=== PATIENT | male | born 1960 | race Caucasian/White ===

== ENCOUNTER 2016-09-13 07:02 | Day surgery (SDC) | payer OTHER ==
[~2016-09-13] VITALS: Ht 175.3 cm; Wt 136.8 kg
[~2016-09-13 07:02] MED LIST: LANT3I SC; LOSA100T7 PO; METF1000 PO; NOVO3I SC; SITA100T8 PO; ibuprofen PO
[2016-09-13 08:01] VITALS: Ht 175.3 cm; Wt 136.8 kg
[2016-09-13 08:30] VITALS: BP 183/90; PULSE 73; RESP 20
[2016-09-13] MEDS ORDERED: MIDAZOLAM 1 MG/ML 2 ML INJ ONE (09:03)
[2016-09-13] MEDS ORDERED: PROPOFOL 20 ML ONE (09:03)
[2016-09-13] MEDS ORDERED: ESMOLOL 10 ML ONE (09:14)
[2016-09-13] MEDS ORDERED: hydrALAzine 20 MG INJ ONE (09:39)
[2016-09-13 10:25] VITALS: BP 176/84; PULSE 70; RESP 18
--- NOTE | 2016-09-14 05:39 | GILP ---
DATE OF PROCEDURE: NAME OF THE PROCEDURE: Colonoscopy and polypectomy. SURGEON: Steven Foley MD. PREOPERATIVE DIAGNOSIS: Right colon cancer. POSTOPERATIVE DIAGNOSES 1. Colonoscopy all the way to the cecum. 2. No residual tumor or any scar tissue at the previous polypectomy site was identified in the righ t colon. 3. Small sigmoid colon polyp was removed using the snare and the electrocautery. 4. Internal hemorrhoids. INDICATION FOR THE PROCEDURE: Mr. Terernce Perez is a 56-year-old male patient who had scr eening colonoscopy 2 months ago. The patient was noted to have a flat polyp in the right colon, and it was removed, and to the surprise, it turned out to be adenocarcinoma. The patient was seen by t surgeon, and the surgeon wanted the site of polypectomy to be tattooed, so the patient was schedu led for a repeat colonoscopy and possible tattooing. The procedure and possible complications were well explained to the patient. He understood and cons ented to the procedure. DESCRIPTION OF PROCEDURE: Under the influence of anesthesia, the colonoscope was carefully introduc ed in the rectum, and under direct vision, it was advanced all the way to the cecum. FINDINGS: The right colon was completely clean. No residual tumor or any scar tissue at the previo us polypectomy site was identified. There was complete healing. The patient was noted to have a sm all sigmoid colon polyp, and it was removed using the snare and the electrocautery. He also had int ernal hemorrhoids. He tolerated the procedure very well, and there was no complication from the procedure. At the end of the procedure, he was awake with stable vital signs, and he was discharged home to the care of hi s family. IMPRESSION 1. Colonoscopy all the way to the cecum. 2. The right colon was cleaned, and there was no residual tumor, and even the scar tissue at the pr evious polypectomy site could not be identified. 3. The patient had a small sigmoid colon polyp, and it was removed using the snare and electrocaute ry. 4. Internal hemorrhoids. PLAN: Surgical evaluation again to decide between right hemicolectomy or possible followup of the patient with a repeat PET scan in 3 to 6 months. The case was discussed with Dr. Tinoco, who is the colorectal surgeon for this patient, and he said he is going to sit with the patient again, and then final decision will be made. Dictated By: STEVEN BRIZUELA/JACOB Conf#: [id number] DID#: [id number] CC: ANNABELLE TINOCO MD;*[facility]*
== END 2016-09-13 11:58 | disposition home or self-care (01) ==
LOC: GIL 07:02
PROVIDERS: ATTEND Internal Medicine Gastroenterology
DX: C18.2 Malignant neoplasm of ascending colon (principal); K64.8 Other hemorrhoids; D12.5 Benign neoplasm of sigmoid colon; E11.9 Type 2 diabetes mellitus without complications; I10 Essential (primary) hypertension; E66.9 Obesity, unspecified; Z68.41 Body mass index [BMI] 40.0-44.9, adult
CPT/HCPCS: 45384; 82962; 88305; J0360; J2250

== ENCOUNTER 2016-11-05 08:33 | Day surgery (SDC) | payer OTHER ==
[2016-09-13 12:52] VITALS: BMI 48.3
[2016-11-04 16:46] VITALS: BMI 42.9
[2016-11-05] VITALS (14 sets, daily range): BP systolic 100–156; BP diastolic 59–85; PULSE 68–100; RESP 16–27; Ht 175.3 cm; Wt 131.1 kg
[~2016-11-05] VITALS: Ht 175.3 cm; Wt 131.1 kg
[~2016-11-05 08:33] MED LIST changes: +ACETAMINOPHEN 1000 MG/100 ML IVPB ONE; +CEFAZOLIN 2 GM/50 ML (PMX) 50 ML IVPB SCH; +SOD CHLORIDE 0.9% 1,000 ML IV SCH; -ibuprofen PO
[2016-11-05] MEDS ORDERED: ATOR40TA68 PO (09:28)
[2016-11-05] MEDS ORDERED: INSULIN REGULAR, HUMAN 100 UNIT/1 ML 3ML VIAL IV ONE (09:30)
[2016-11-05] MEDS ORDERED: PROPOFOL 20 ML ONE (10:02)
[2016-11-05] MEDS ORDERED: LIDOCAINE 2% (SDV) 5 ML INJ ONE (10:02)
[2016-11-05] MEDS ORDERED: ROCURONIUM 50 MG INJ ONE (10:03)
[2016-11-05] MEDS ORDERED: SUCCINYLCHOLINE CHLORIDE 100 MG/5 ML SYG IV ONE (10:03)
[2016-11-05] MEDS ORDERED: BUPIVACAINE 0.25% (MPF) 30 ML INJ ONE (10:07)
[2016-11-05] MEDS ORDERED: DEXAMETHASONE 4 MG/ML 1 ML INJ ONE (10:12)
[2016-11-05] MEDS ORDERED: PHENYLephrine (100 MCG/ML) 5ML SYG ONE (10:34)
[2016-11-05] MEDS ORDERED: THROMBIN(HUM PLAS)/FIBRINOG/CA 5 ML VIAL TOP ONE (10:55)
[2016-11-05] MEDS ORDERED: CEFAZOLIN 1 GM INJ ONE (10:59)
[2016-11-05] MEDS ORDERED: GLYCOPYRROLATE 0.4 MG INJ ONE (10:59)
[2016-11-05] MEDS ORDERED: EPHEDrine SULFATE 50 MG/5 ML SYG ONE (10:59)
[2016-11-05] MEDS ORDERED: NEOSTIGMINE 3 MG/3 ML SYRINGE ONE (10:59)
[2016-11-05] MEDS ORDERED: FENTAnyl 50 MCG/ML VIAL IV PRN ×2 (11:00)
[2016-11-05] MEDS ORDERED: EPHEDrine SULFATE 50 MG/5 ML SYG IV PRN (11:00)
[2016-11-05] MEDS ORDERED: MEPERIDINE 25 MG INJ IV PRN (11:00)
[2016-11-05] MEDS ORDERED: ONDANSETRON 4 MG INJ IV PRN (11:00)
[2016-11-05] MEDS ORDERED: HYDROmorphONE (0.2 MG/ML) 10ML SYG IV PRN ×2 (11:00)
[2016-11-05] MEDS ORDERED: INSULIN ASPART [NOVOLOG] 3 ML PEN SC ONE (11:00)
[2016-11-05] MEDS ORDERED: LABETALOL HCL 20MG INJ IV PRN (11:00)
[2016-11-05] MEDS ORDERED: METOCLOPRAMIDE 10 MG INJ IV PRN (11:00)
[2016-11-05] MEDS ORDERED: hydrALAzine 20 MG INJ IV PRN (11:00)
[2016-11-05] MEDS ORDERED: LABETALOL HCL 20MG INJ ONE (11:00)
[2016-11-05] MEDS: FENTAnyl 50 MCG/ML VIAL IV PRN ×2 (11:25→11:34)
[2016-11-05] MEDS ORDERED: HYDROCODONE/APAP (5/325) TAB PO ONE (11:30)
--- NOTE | 2016-11-05 11:32 | OPR ---
DATE OF OPERATION: 11/05/2016 INDICATION: This is a 56-year-old male with symptomatic gallstones. He requests surgical excision of his gallbladder. Risks, alternatives, benefits, and personnel were discussed with the patient. The patient expressed his understanding and consents to the operation. PREOPERATIVE DIAGNOSIS: Symptomatic gallstones. POSTOPERATIVE DIAGNOSIS: Symptomatic gallstones. OPERATION: Laparoscopic cholecystectomy. SURGEON: Do García MD FIRE EXTINGUISHER TECHNICIAN: Talat Manrique MD SPECIMENS: Gallbladder. COMPLICATIONS: None. ANESTHESIA: General. DESCRIPTION OF PROCEDURE: The patient was taken to the OR and prepped and draped in the usual steri le fashion. A surgical timeout was performed. IV antibiotics were given. Supraumbilical incision was made with a 15 blade. Dissection cautery was carried down to the fascia, 0 Vicryl stay sutures were placed on either side of the midline. The midline is opened. Balloon Enzo trocar was introd uced. Pneumoperitoneum was established. Midepigastric 12 mm optical trocar and right upper quadran t and right upper flank 5 mm optical trocars are placed under direct visualization. Upon initial in spection, there were some adhesions to the gallbladder. The cystic duct and cystic artery are ident ified. The critical view was established. The cystic duct and cystic artery were divided using a 3 5 mm Abiquiu vascular load stapler x2 gallbladder was taken off the gallbladder bed. There was good hemostasis. Gallbladder was retrieved using EndoCatch bag. Additional clips were placed for reinf orcement. Ports were removed under direct visualization, 0 Vicryl stay sutures were tied down. Add itionally, a [id number] 0 Vicryl was placed for additional closure. Skin was closed using skin oren. Local anesthesia was injected and dry dressings were applied. Dictated By: DO ARMANDO/JACOB Conf#: [id number] DID#: [id number]
[2016-11-05] MEDS: HYDROmorphONE (0.2 MG/ML) 10ML SYG IV PRN ×2 (11:34→11:50)
[2016-11-05] MEDS ORDERED: INSULIN REGULAR, HUMAN 100 UNIT/1 ML 3ML VIAL SC ONE (12:00)
== END 2016-11-05 13:45 | disposition home or self-care (01) ==
LOC: SDS 08:33
PROVIDERS: ATTEND Surgery
DX: K80.10 Calculus of gallbladder with chronic cholecystitis without obstruction (principal); I12.0 Hypertensive chronic kidney disease with stage 5 chronic kidney disease or end stage renal disease; I10 Essential (primary) hypertension; E11.9 Type 2 diabetes mellitus without complications; J45.909 Unspecified asthma, uncomplicated; E66.01 Morbid (severe) obesity due to excess calories; Z68.41 Body mass index [BMI] 40.0-44.9, adult
CPT/HCPCS: 47562; 82962; 88304; J0131; J0690; J1100; J1170; J1815; J2405; J3010; C9250; J0330; J2370; J2710

== ENCOUNTER 2016-11-11 19:10 | Inpatient (IN) | payer OTHER ==
[~2016-11-11] VITALS: Ht 175.3 cm; Wt 129.5 kg
[~2016-11-11 19:10] MED LIST changes: -ACETAMINOPHEN 1000 MG/100 ML IVPB ONE; +ATOR40TA68 PO; -CEFAZOLIN 2 GM/50 ML (PMX) 50 ML IVPB SCH; -SOD CHLORIDE 0.9% 1,000 ML IV SCH
--- NOTE | 2016-11-11 21:26 | ERA ---
ER Documentation Chief Complaint Date/Time DATE: 11/11/16 TIME: 21:25 Chief Complaint AP today, S/P Cholecystitis HPI The patient is a 56-year-old male, who had laparoscopic cholecystectomy on November 05, 2016, presenting to the ER because of right upper quadrant abdominal pain after bending down today. He has been constipated. He had a big fatty meal before the abdominal pain. The abdominal pain is 9/10. He denies fever, chills, neck pain, chest pain, vomiting, dysuria, diarrhea. He does not smoke, drinks socially Past medical history: Hypertension, diabetes mellitus, dyslipidemia Past surgical history: Umbilical herniorrhaphy ROS All systems reviewed and are negative except as per history of present illness. Medications Home Meds Active Scripts Insulin Aspart* (Novolog Insulin Pen*) 100 Unit/Ml Soln, 8 UNIT SC WITH MEALS for 30 Days, 1 Refill Prov:BABAR MORGAN. 02/25/15 Insulin Glargine* (Lantus*) 100 Unit/Ml Soln, 36 UNIT SC QAM for 30 Days, 1 Refill Prov:BAABR MORGAN. 02/25/15 Reported Medications Ibuprofen* (Ibuprofen*) 200 Mg Capsule, 400 MG PO Q6 Y for PRN, CAP 11/11/16 Metformin Hcl* (Metformin Hcl*) 500 Mg Tablet, 500 MG PO WITH BREAKFAST, #30 TAB 11/11/16 Losartan-Hydrochlorothiazide (Losartan-HCTZ) 100-25 Mg Tab, 1 TAB PO DAILY, TAB 11/11/16 Atorvastatin* (Atorvastatin*) 40 Mg Tablet, 40 MG PO QHS, #30 TAB 11/05/16 Sitagliptin* (Januvia*) 100 Mg Tablet, 100 MG PO DAILY, TAB 02/22/15 Discontinued Reported Medications Losartan Potassium* (Losartan Potassium*) 100 Mg Tablet, 100 MG PO DAILY, TAB 02/22/15 Metformin Hcl* (Metformin Hcl*) 1,000 Mg Tablet, 1000 MG PO BID WITH MEALS, TAB 02/22/15 Allergies Allergies: Coded Allergies: adhesive tape (Verified Adverse Reaction, Unknown, SKIN COMES OFF, 11/11/16 ) PMhx/Soc History of Surgery: Yes (umbilical hernia) Anesthesia Reaction: No Hx Neurological Disorder: No Hx Respiratory Disorders: No Hx Cardiac Disorders: Yes (HTN,HLP) Hx Psychiatric Problems: No Hx Miscellaneous Medical Probl: No Hx Alcohol Use: No (FORMER) Hx Substance Use: No Hx Tobacco Use: No Physical Exam Vitals Vital Signs Date Time Temp Pulse Resp B/P Pulse Ox O2 Delivery O2 Flow Rate FiO2 11/11/16 23:22 99.2 87 18 145/74 97 11/11/16 19:28 97.6 79 18 149/88 94 Physical Exam Const: No acute distress. Head: Atraumatic. Eyes: Normal Conjunctiva. ENT: Normal External Ears, Nose and Mouth. Neck: Full range of motion. No meningismus. Resp: Clear to auscultation bilaterally. Cardio: Regular rate and rhythm, no murmurs. Abd: Soft, obese, normal bowel sounds, moderate right upper quadrant tenderness, no rigidity, rebound, CVA tenderness. Skin: No petechiae or rashes. Back: No midline or flank tenderness. Ext: No cyanosis, or edema. Neur: Awake and alert. No focal deficit Psych: Normal Mood and Affect. Result Diagram: 11/11/16212211/11/162122 Results 24 hrs Laboratory Tests Test 11/11/16 21:23 11/11/16 22:32 11/11/16 22:40 11/12/16 00:38 White Blood Count 18.310^3/ul Red Blood Count 4.2710^6/ul Hemoglobin 12.8g/dl Hematocrit 37.5% Mean Corpuscular Volume 87.8fl Mean Corpuscular Hemoglobin 30.0pg Mean Corpuscular Hemoglobin Concent 34.1g/dl Red Cell Distribution Width 12.1% Platelet Count 36414^3/UL Mean Platelet Volume 11.0fl Neutrophils % 87.5% Lymphocytes % 7.2% Monocytes % 4.2% Eosinophils % 0.2% Basophils % 0.2% Nucleated Red Blood Cells % 0.0/100WBC Neutrophils # 16.010^3/ul Lymphocytes # 1.310^3/ul Monocytes # 0.810^3/ul Eosinophils # 0.010^3/ul Basophils # 0.010^3/ul Nucleated Red Blood Cells # 0.010^3/ul Sodium Level 130mmol/L Potassium Level 4.2mmol/L Chloride Level 86mmol/L Carbon Dioxide Level 31mmol/L Anion Gap 17 Blood Urea Nitrogen 26mg/dl Creatinine 1.00mg/dl Glucose Level 614mg/dl Calcium Level 9.8mg/dl Total Bilirubin 0.5mg/dl Direct Bilirubin 0.00mg/dl Indirect Bilirubin 0.5mg/dl Aspartate Amino Transf (AST/SGOT) 25IU/L Alanine Aminotransferase (ALT/SGPT) 41IU/L Alkaline Phosphatase 145IU/L Total Protein 8.7g/dl Albumin 3.9g/dl Globulin 4.80g/dl Albumin/Globulin Ratio 0.81 Lipase 173U/L Bedside Urine pH (LAB) 5.5 Bedside Urine Protein (LAB) Negative Bedside Urine Glucose (UA) 0.50% Bedside Urine Ketones (LAB) Negative Bedside Urine Blood Negative Bedside Urine Nitrite (LAB) Negative Bedside Urine Leukocyte Esterase (L Negative Bedside Glucose 568mg/dL 480mg/dL Test 11/12/16 01:17 Bedside Glucose 466mg/dL Current Medications Medications (Trade) Dose Ordered Sig/Isidoro Route PRN Reason Start Time Stop Time Status Last Admin Dose Admin Morphine Sulfate (morphine) 4 mg ONCE STAT IV 11/11/16 21:31 11/11/16 21:33 DC 11/11/16 21:56 Ondansetron HCl (Zofran Inj) 4 mg ONCE STAT IV 11/11/16 21:31 11/11/16 21:33 DC 11/11/16 21:56 Sodium Biphosphate/ Sodium Phosphate (Fleet Enema) 133 ml ONCE ONCE ID 11/11/16 22:00 11/11/16 22:01 DC 11/11/16 21:56 Sodium Chloride (NS) 2,000 ml ONCE ONCE IV* 11/11/16 22:30 11/11/16 22:31 DC 11/11/16 22:39 Insulin Human Lispro (Humalog) 20 unit ONCE STAT SC 11/11/16 22:11 11/11/16 22:15 DC 11/11/16 22:41 Miscellaneous Information 1 ea NOTE XX 11/11/16 22:30 Glucose (Glutose) 15 gm Q15M PRN PO DECREASED GLUCOSE 11/11/16 22:30 Glucose (Glutose) 22.5 gm Q15M PRN PO DECREASED GLUCOSE 11/11/16 22:30 Dextrose (D50w Syringe) 25 ml Q15M PRN IV DECREASED GLUCOSE 11/11/16 22:30 Dextrose (D50w Syringe) 50 ml Q15M PRN IV DECREASED GLUCOSE 11/11/16 22:30 Glucagon (Glucagen) 1 mg Q15M PRN IM DECREASED GLUCOSE 11/11/16 22:30 Glucose 15 gm 15 gm Q15M PRN BUCCAL DECREASED GLUCOSE 11/11/16 22:30 Sodium Chloride (NS) 100 ml @ ud STK-MED ONCE .ROUTE 11/11/16 23:32 11/11/16 23:33 DC 11/12/16 00:27 Iohexol 150 ml 150 ml STK-MED ONCE .ROUTE 11/11/16 23:32 11/11/16 23:33 DC 11/12/16 00:27 Piperacillin Sod/ Tazobactam Sod (Zosyn 3.375gm/ 100 ml (Pmx)) 100 ml @ 200 mls/hr ONCE ONCE IVPB 11/12/16 01:30 11/12/16 01:59 DC 11/12/16 01:30 Procedures/MDM [place] [id number] Radiology Main Line: [phone] DIAGNOSTIC IMAGING REPORT Patient: MAUREEN LAGUNA : 1960 Age: 56 Sex: M MR #: [id number] DOS: 11/11/16 0000 Ordering MD: SHANNON HARRISON MD Location: E/R Room/Bed: PROCEDURE: XR Chest. CLINICAL INDICATION: Shortness of breath. TECHNIQUE: Single frontal view. COMPARISON: 01/03/2013. FINDINGS: The lungs are clear. The heart is enlarged. There is no pleural effusion. There is no pneumothorax. IMPRESSION: 1. Cardiomegaly. 2. Clear lungs. RPTAT: QQ .Larry Nava MD, MD Date Time Electronically viewed and signed by .Larry Nava MD, MD on 11/11/2016 22:58 .R/ CC: SHANNON HARRISON MD [address], [place] [address] Radiology Main Line: [phone] DIAGNOSTIC IMAGING REPORT Patient: MAUREEN LAGUNA : 1960 Age: 56 Sex: M MR #: [id number] [facility] #: [id number] DOS: 11/11/16 2213 Ordering MD: SHANNON HARRISON MD Location: E/R Room/Bed: PROCEDURE: CT ABDOMEN/PELVIS WITH CONTRAST CLINICAL INDICATION: 56-year-old male with abdominal pain. TECHNIQUE: The study was performed utilizing a [employer] VCT 64-slice CT scanner. Direct axial sections were obtained through the abdomen and pelvis with the use of 100 cc of Omnipaque-300 nonionic intravenous contrast material. Sagittal and coronal reformations were obtained. One or more of the following dose reduction techniques were utilized: automated exposure control, adjustment of the mA and/or kV according to patient's size or use of iterative reconstruction technique. The images were reviewed on a PACS workstation. CTD/ vol = 23.1 mGy; Total Exam DLP = 1678 point a mGy-cm. COMPARISON: None. FINDINGS: There is mild bibasilar subsegmental atelectasis. There is no evidence for significant pleural effusion. There is mild free fluid surrounding the right lobe of the liver extending into the right pericolic gutter as well as trace fluid within the peritoneum. The liver has a normal size and contour without focal areas of abnormal density or contrast enhancement. No intrahepatic nor extrahepatic biliary ductal dilatation is seen. Skin clips are seen within the upper midline of the abdomen, right upper quadrant and supraumbilical region from trocar placement from laparoscopic surgery. Surgical clips are seen within the gallbladder fossa from cholecystectomy. There is a fluid collection within the gallbladder fossa region measuring approximately 2.7 x 4.0 x 4.2 cm which may represent a postoperative seroma versus biloma. There appears to be multiple residual gallstones within a possible gallbladder remnant versus dilated cystic duct. There is mild surrounding inflammatory changes. The pancreas is without areas of abnormal attenuation or contrast enhancement. This spleen is identified and has a normal size without abnormal density or contrast enhancement. The adrenal glands are unremarkable. The kidneys are functional bilaterally without abnormal density. No hydroureteronephrosis nor nephroureterolithiasis is evident. The urinary bladder contains urine. There is mild retained stool throughout the colon without gross bowel obstruction. The appendix is visualized and is without edema or surrounding inflammatory reaction. The aortoiliac vessels are mildly calcified but without aneurysmal dilatation. Mild degenerative changes are seen within the spine. IMPRESSION: 1. Evidence for recent laparoscopic surgery with postoperative changes. 2. Mild free fluid surrounding the right lobe of the liver extending into the pericolic gutter and trace fluid in the peritoneum. 3. Status post cholecystectomy with mild fluid collection within the gallbladder fossa region which may represent a postoperative seroma versus biloma. There are multiple residual gallstones which may be within a gallbladder or cystic duct remnant. 4. Retained stool. CALL REPORT: A call report was made to [facility] ER Dr. Harrison on November 12, 2016 at 01:10 a.m. .Jelani Benton MD, Date Time Electronically viewed and signed by .Jelani Benton MD, MD on 11/12/2016 01:17 .M/ CC: SHANNON HARRISON MD MEDICAL MAKING DECISION: The patient is a 56-year-old male, presenting to the ER because of acute postoperative abdominal pain, acute diabetic hyperglycemia, acute constipation. He was treated with morphine 4 mg IV for pain, Zofran 4 mg IV for nausea, Fleet enema for acute constipation, 3 L normal saline and 20 units Humalog subcutaneously for acute diabetic hyperglycemia and Zosyn IV empirically. The differential diagnoses considered include but are not limited to residual gallstones within a gallbladder or cystic duct remnant, cystitis, pancreatitis , hepatitis, gastritis, peptic ulcer disease, gastric ulcer, appendicitis, diverticulitis, cholangitis, choledocholithiasis, partial small bowel obstruction, HHS, DKA. Consultation: I discussed the patient with his general surgeon Dr Do García who requested the patient admitted to Dr. Galindo Departure Diagnosis: Primary Impression: Abdominal pain Additional Impressions: Diabetes mellitus with hyperglycemia Anemia Condition: Stable Comments [facility] authorized the admission; however they specifically requested the admitting doctor must not be Dr. Galindo I discussed the findings with the patient. I discussed the patient with the on- call hospitalist Dr. Snow who was made aware of the lab, the treatment, the patient condition. The patient is admitted to medical surgery bed at 2:15 AM SHANNON HARRISON MD Nov 11, 2016 21:26
[2016-11-11] MEDS ORDERED: morphine 4 MG/ML VIAL IV STA (21:31)
[2016-11-11] MEDS ORDERED: ONDANSETRON 4 MG INJ IV STA (21:31)
[2016-11-11 21:42] LABS: ADD SCAN DIFF NO
[2016-11-11 21:46] LABS: BASOPHILS % 0.2 % (0.0-2.0); EOSINOPHILS % 0.2 % (0.0-7.0); HEMATOCRIT 37.5 % (42.0-52.0); HEMOGLOBIN 12.8 g/dl (14.0-18.0); LYMPHOCYTES # 1.3 10^3/ul (0.8-2.9); LYMPHOCYTES % 7.2 % (15.0-51.0); MEAN CORPUSCULAR HGB CONC 34.1 g/dl (32.0-37.0); MEAN CORPUSCULAR VOLUME 87.8 fl (82.0-101.0); MONOCYTE # 0.8 10^3/ul (0.3-0.9); MONOCYTES % 4.2 % (0.0-11.0); NEUTROPHILS % 87.5 % (39.0-77.0); PLATELET COUNT 432 10^3/UL (140-415); RED BLOOD COUNT 4.27 10^6/ul (4.70-6.10); RED CELL DISTRIBUTION WIDTH 12.1 % (11.5-14.5); WHITE BLOOD COUNT 18.3 10^3/ul (4.8-10.8)
[2016-11-11 21:58] LABS: ALBUMIN 3.9 g/dl (3.3-4.9)
[2016-11-11 21:59] LABS: POTASSIUM 4.2 mmol/L (3.5-5.1)
[2016-11-11] MEDS ORDERED: NA PHOSPHATE/BIPHOS 133 ML ENEMA PR ONE (22:00)
[2016-11-11 22:01] LABS: ALBUMIN/GLOBULIN RATIO 0.81; BILIRUBIN,INDIRECT 0.5 mg/dl (0-1.1); BILIRUBIN,TOTAL 0.5 mg/dl (0.2-1.3); TOTAL PROTEIN 8.7 g/dl (6.1-8.1)
[2016-11-11 22:02] LABS: CALCIUM 9.8 mg/dl (8.4-10.2)
[2016-11-11] MEDS ORDERED: INSULIN LISPRO 100 UNIT/ML VIAL SC STA (22:11)
[2016-11-11] MEDS ORDERED: LOSA1TAB20 PO (22:22)
[2016-11-11] MEDS ORDERED: IBUP200C PO (22:23)
[2016-11-11] MEDS ORDERED: METF-382 PO (22:23)
[2016-11-11] MEDS ORDERED: GLUCAGON 1 MG INJ IM PRN (22:30)
[2016-11-11] MEDS ORDERED: GLUCOSE GEL 15 GRAM TUBE BUCCAL PRN (22:30)
[2016-11-11] MEDS ORDERED: SODIUM CHLORIDE 0.9% 1L BAG IV* ONE (22:30)
[2016-11-11] MEDS ORDERED: DEXTROSE 50% 50 ML SYRINGE IV PRN ×2 (22:30)
[2016-11-11] MEDS ORDERED: GLUCOSE GEL 15 GRAM TUBE PO PRN ×2 (22:30)
[2016-11-11 22:33] LABS: URINE BLOOD (Dip) POC Negative (NEGATIVE)
--- NOTE | 2016-11-11 22:58 | RADRPT ---
PROCEDURE: XR Chest. CLINICAL INDICATION: Shortness of breath. TECHNIQUE: Single frontal view. COMPARISON: 01/03/2013. FINDINGS: The lungs are clear. The heart is enlarged. There is no pleural effusion. There is no pneumothorax. IMPRESSION: 1. Cardiomegaly. 2. Clear lungs. RPTAT: QQ .Larry Nava MD, MD Date Time Electronically viewed and signed by .Larry Nava MD, MD on 11/11/2016 22:58 .R/
[2016-11-11] MEDS ORDERED: IOHEXOL 300MG/ML 150 ML BTL ONE (23:32)
[2016-11-11] MEDS ORDERED: SOD CHLORIDE 0.9% 100 ML ONE (23:32)
--- NOTE | 2016-11-12 01:18 | RADRPT ---
PROCEDURE: CT ABDOMEN/PELVIS WITH CONTRAST CLINICAL INDICATION: 56-year-old male with abdominal pain. TECHNIQUE: The study was performed utilizing a [employer] VCT 64-slice CT scanner. Direct axia l sections were obtained through the abdomen and pelvis with the use of 100 cc of Omnipaque-300 dedra onic intravenous contrast material. Sagittal and coronal reformations were obtained. One or more of the following dose reduction techniques were utilized: automated exposure control, adjustment of the mA and/or kV according to patient's size or use of iterative reconstruction technique. The images were reviewed on a PACS workstation. CTD/vol = 23.1 mGy; Total Exam DLP = 1678 point a mGy-cm. COMPARISON: None. FINDINGS: There is mild bibasilar subsegmental atelectasis. There is no evidence for significant pleural effu enrique. There is mild free fluid surrounding the right lobe of the liver extending into the right per icolic gutter as well as trace fluid within the peritoneum. The liver has a normal size and contour without focal areas of abnormal density or contrast enhancement. No intrahepatic nor extrahepatic b iliary ductal dilatation is seen. Skin clips are seen within the upper midline of the abdomen, right upper quadrant and supraumbilical region from trocar placement from laparoscopic surgery. Surgical clips are seen within the gallbladder fossa from cholecystectomy. There is a fluid collection withi n the gallbladder fossa region measuring approximately 2.7 x 4.0 x 4.2 cm which may represent a post operative seroma versus biloma. There appears to be multiple residual gallstones within a possible gallbladder remnant versus dilated cystic duct. There is mild surrounding inflammatory changes. The pancreas is without areas of abnormal attenuation or contrast enhancement. This spleen is ident ified and has a normal size without abnormal density or contrast enhancement. The adrenal glands are unremarkable. The kidneys are functional bilaterally without abnormal density. No hydroureteronephr osis nor nephroureterolithiasis is evident. The urinary bladder contains urine. There is mild retain ed stool throughout the colon without gross bowel obstruction. The appendix is visualized and is wi thout edema or surrounding inflammatory reaction. The aortoiliac vessels are mildly calcified but w ithout aneurysmal dilatation. Mild degenerative changes are seen within the spine. IMPRESSION: 1. Evidence for recent laparoscopic surgery with postoperative changes. 2. Mild free fluid surrounding the right lobe of the liver extending into the pericolic gutter and trace fluid in the peritoneum. 3. Status post cholecystectomy with mild fluid collection within the gallbladder fossa region which may represent a postoperative seroma versus biloma. There are multiple residual gallstones which ma y be within a gallbladder or cystic duct remnant. 4. Retained stool. CALL REPORT: A call report was made to [facility] ER Dr. Lutz on November 12, 2016 at 01:10 a.m. .Jelani Benton MD, MD Date Time Electronically viewed and signed by .Jelani Benton MD, MD on 11/12/2016 01:17 .M/
[2016-11-12] MEDS ORDERED: PIPER-TAZO 3.375 GM IV (PMX) 100 ML IVPB ONE (01:30)
[2016-11-12] MEDS ORDERED: SOD CHLORIDE 0.9% 1,000 ML IV ONE (02:30)
[2016-11-12 04:00] VITALS: TEMP 98.3
[2016-11-12] MEDS ORDERED: morphine 4 MG/ML VIAL IV STA (04:34)
[2016-11-12] MEDS ORDERED: ONDANSETRON 4 MG INJ IV STA (04:34)
[2016-11-12 08:30] VITALS: Ht 175.3 cm; Wt 129.5 kg
[2016-11-12] MEDS ORDERED: NACL 0.9% 3 ML SYG IV SCH (08:30)
[2016-11-12] MEDS ORDERED: ONDANSETRON 4 MG INJ IV PRN (08:30)
[2016-11-12] MEDS ORDERED: ACETAMINOPHEN 650 MG SUPP PR PRN (08:30)
[2016-11-12] MEDS ORDERED: GLUCAGON 1 MG INJ IM PRN (09:00)
[2016-11-12] MEDS ORDERED: GLUCOSE GEL 15 GRAM TUBE PO PRN ×2 (09:00)
[2016-11-12] MEDS ORDERED: PIPER-TAZO 3.375 GM IV (PMX) 100 ML IVPB SCH (09:00)
[2016-11-12] MEDS ORDERED: GLUCOSE GEL 15 GRAM TUBE BUCCAL PRN (09:00)
[2016-11-12] MEDS ORDERED: DEXTROSE 50% 50 ML SYRINGE IV PRN ×2 (09:00)
[2016-11-12] MEDS ORDERED: INSULIN GLARGINE [LANtus] 3 ML PEN SC SCH ×2 (09:00)
--- NOTE | 2016-11-12 10:28 | HP ---
DATE OF ADMISSION: 11/12/2016 CHIEF COMPLAINT: Abdominal pain. HISTORY OF PRESENT ILLNESS: The patient is a 56-year-old male with a history of hypertension, diabet es, dyslipidemia, who presented to the emergency department with abdominal pain. He had laparoscopi c cholecystectomy last week on 11/05/[address] García. He states that after he bent down, he st arted experiencing pain mostly located in the right upper quadrant area and as such he came here for evaluation. He also reported associated nausea after the onset of his pain. He denied any fever, chills, but also reported some lightheadedness. When he presented to the ER, he was found to have a WBC of 18,000 and also severely hyperglycemic wi th a glucose of greater than 600, but no DKA. CT abdomen and pelvis shows postop change, otherwise, no serious acute finding. The patient was given IV fluids as well as insulin and currently he is a waiting surgical evaluation by Dr. García. REVIEW OF SYSTEMS: A 12-point review of systems was performed, negative except as mentioned in the HPI. PAST MEDICAL HISTORY: As per HPI. PAST SURGICAL HISTORY: As per HPI. SOCIAL HISTORY: No . ALLERGIES: NO KNOWN DRUG ALLERGIES. HOME MEDICATIONS: 1. Lipitor. 2. Losartan. 3. Hydrochlorothiazide. 4. Insulin. 5. Metformin. 6. Januvia. PHYSICAL EXAMINATION: GENERAL: An overweight male lying in bed in mild distress due to abdominal pain. HEENT: No obvious head deformity. No scleral icterus. Pupils are reactive to light. CARDIOVASCULAR: Slightly tachycardic with regular rhythm. LUNGS: Clear anteriorly. ABDOMEN: Obese, soft. Tenderness mostly located in the right upper quadrant area. No rigidity. N o rebound tenderness. EXTREMITIES: No edema. LABORATORY DATA: Pertinent positives as mentioned in the HPI. IMAGING: CT abdomen and pelvis with results as mentioned in the HPI. IMPRESSION: 1. Postop abdominal pain. 2. Diabetes with severe hyperglycemia. 3. Leukocytosis. 4. History of hypertension. 5. Obesity with a BMI of 41. PLAN: The patient had a CT abdomen and pelvis which shows postop change, but no serious acute findi ngs were noted. He is currently awaiting surgical evaluation by Dr. García who did his laparoscopic ch olecystectomy a week ago. We will provide pain medication and antiemetics as needed. He will be pl aced on insulin for his diabetes and we will monitor closely. He will be continued with his antihyp ertensives when he is no longer n.p.o. Until then, we will IV antihypertensives as needed. I will empirically start him on antibiotics. Again, he is currently awaiting surgical outpatient. Further workup and management per clinical course. Dictated By: JOSELIN WISE/JACOB Conf#: [id number] DID#: [id number]
[2016-11-12] MEDS: SOD CHLORIDE 0.9% 1,000 ML IV SCH ×2 (10:48→18:30)
[2016-11-12] MEDS: FAMOTIDINE 20 MG INJ IV SCH ×2 (10:48→21:03)
--- NOTE | 2016-11-12 11:52 | CONS ---
DATE OF ADMISSION: 11/12/2016 DATE OF CONSULTATION: 11/12/2016 HISTORY OF PRESENT ILLNESS: This is a 56-year-old male who underwent recent laparoscopic cholecyste ctomy. The patient presents approximately a week later with an intra-abdominal abscess, concern for an abscess versus a bile leak. CT scan shows a small fluid collection in the right upper quadrant. White blood cell count of 18,000 with hyperglycemia. REVIEW OF SYSTEMS: A 12-point review of systems was performed, negative except for mentioned in the HPI. PAST MEDICAL HISTORY: Hypertension, diabetes, dyslipidemia, morbid obesity. PAST SURGICAL HISTORY: Laparoscopic cholecystectomy. SOCIAL HISTORY: Denies any tobacco use or alcohol use. ALLERGIES: NO KNOWN DRUG ALLERGIES. HOME MEDICATIONS: 1. Lipitor. 2. Losartan. 3. Hydrochlorothiazide. 4. Insulin. 5. Metformin. 6. Januvia. PHYSICAL EXAMINATION: VITAL SIGNS: Temperature 98.3, pulse is 90, respiratory rate is 21, blood pressure 132/79, pulse ox 93%. GENERAL: An overweight, morbidly obese male in mild distress due to abdominal pain. HEENT: PERRLA. CARDIOVASCULAR: Regular rate and rhythm. LUNGS: Clear to auscultation. ABDOMEN: Soft, focal right tenderness. No peritoneal signs, no rebound tenderness. EXTREMITIES: No clubbing or cyanosis. LABORATORY DATA: White blood cell count 18.3, hemoglobin 12.8, platelet count 432. Chemistry: Sod ium 130, potassium 4.2, chloride 86, carbon dioxide 31, BUN is 26, creatinine is 1.0, glucose is 614 . Indirect bilirubin 0.5, AST 25, ALT 41, alkaline phosphatase 145. Lipase is 173. CT scan shows evidence of any recent laparoscopic surgery with postoperative changes with mild free fluid surrounding the right lobe of the liver extending to the pericolic gutter and trace fluid in t he peritoneum with a mild fluid collection in the gallbladder fossa which may represent postoperativ e seroma versus biloma and some residual gallstones within the cystic duct remnant, and retained sto ol. ASSESSMENT AND PLAN: This is a 56-year-old male with recent laparoscopic cholecystectomy with a flu id collection in the gallbladder fossa, concern for abscess versus biloma. Will get a HIDA scan to e valuate. Will need a GI consult and CT-guided percutaneous drainage of fluid collection. Will contin ue to follow. Dictated By: DANIEL BEAL MD SB/NTS Conf#: [id number] DID#: [id number]
[2016-11-12] MEDS ORDERED: INSULIN ASPART [NOVOLOG] 3 ML PEN SC SCH (12:15)
[2016-11-12] MEDS: INSULIN ASPART [NOVOLOG] 3 ML PEN SC SCH ×5 (12:57→23:42)
[2016-11-12] MEDS ORDERED: LACTATED RINGER'S 500 ML IV ONE (14:30)
[2016-11-12 14:35] LABS: INR 1.08; PARTIAL THROMBOPLASTIN TIME 34.4 Sec (25.0-35.0); PT RATIO 1.1
--- NOTE | 2016-11-12 14:51 | CONS ---
Date/Time of Note Date/Time of Note DATE: 11/12/16 TIME: 14:42 Assessment/Plan Assessment/Plan Problems: (1) Diabetes mellitus type 2 in obese Status: Chronic Comment: Sugar control at this time is out of control although this may represent active infection in the area of the surgical site from a week ago. He is being seen in consultation by Dr. Howard whose recommendations I strongly concur with. Will use insulin to get him under control rapidly. (2) History of heavy alcohol consumption Status: Chronic Comment: He reports he is discontinued however will go ahead and give him thiamine (3) Adenocarcinoma of colon Onset Date: ~ 07/06/2016 Status: Chronic Comment: Apparently the patient has been elected to be observed this was managed through Dr. Lee; and Dr. Benítez. I do not have any of the data on that available to me (4) Status post laparoscopic cholecystectomy Onset Date: ~ 11/05/2016 Status: Acute Comment: He is being managed by our surgical colleagues. Hopefully this will be an easy resolution although I am somewhat concerned Consultation Date/Type/Reason Admit Date/Time Nov 12, 2016 at 03:46 Date of Consultation: Nov 12, 2016 Type of Consultation: Endocrinology Reason for Consultation Diabetes mellitus type 2 out of control; hypertension; hyperlipidemia; gallbladder disease. Referring Provider: JOSELIN HOROWITZ MD Charming 56-year-old Chinese gentleman who underwent laparoscopic cholecystectomy November 05, [address] García. Postoperatively he developed abdominal pain is readmitted. He has rather significant sugar out of control. As long history of diabetes mellitus type 2 with his only complication having been a diabetic foot ulcer several years ago that has fully resolved. Is actively managed in the community by his primary care physician Dr. Sulema Iglesias. Eyes: no complaints ENT: no complaints Respiratory: no complaints Cardiovascular: no complaints Gastrointestinal: pain Genitourinary: no complaints Musculoskeletal: no complaints Skin: no complaints Neurologic: no complaints Past Medical History Diabetes mellitus type 2; morbid obesity; hypertension; hyperlipidemia; right colon adenocarcinoma July 06, 2016; fatty liver disease; history of heavy alcohol usage Medical History: angina, diabetes Past Surgical History Status post phimosis repair; status post repair of ventral hernia with redo 2006 ; status post laparoscopic cholecystectomy November 05, 2016; status post colonoscopy with resection of a right colon malignant polyp July 06, 2016 Family History Significant Family History: heart disease, diabetes Social History Alcohol Use: other (He has a history of heavy alcohol usage he reports he quit 3 months ago) Smoking Status: Former smoker (Reports that he quit 30 years ago) Drug Use: none Other Social History Born in [place] and razor lives in [facility] for 35 years lives with his spouse and 3 children 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 Sulema Iglesias; colorectal surgery Dr. 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 Tobin Exam/Review of Systems Vital Signs Vitals Vital Signs Date Time Temp Pulse Resp B/P Pulse Ox O2 Delivery O2 Flow Rate FiO2 11/12/16 06:41 90 21 132/79 93 Room Air 11/12/16 04:00 98.3 Intake and Output 11/11/16 11/11/16 11/12/16 15:00 23:00 07:00 Intake Total 3100 ml Balance 3100 ml Exam Constitutional: alert, oriented Neck: non-tender, supple Respiratory: clear to auscultation, normal air movement Cardiovascular: nl pulses, regular rate and rhythm Gastrointestinal: nl liver, spleen, non-tender, soft Results Result Diagram: 11/11/16212211/11/162122 Results 24 hrs Laboratory Tests Test 11/11/16 21:23 11/11/16 22:32 11/11/16 22:40 11/12/16 00:38 White Blood Count 18.3 #H Red Blood Count 4.27 L Hemoglobin 12.8 L Hematocrit 37.5 L Mean Corpuscular Volume 87.8 Mean Corpuscular Hemoglobin 30.0 Mean Corpuscular Hemoglobin Concent 34.1 Red Cell Distribution Width 12.1 Platelet Count 432 H Mean Platelet Volume 11.0 #H Neutrophils % 87.5 H Lymphocytes % 7.2 L Monocytes % 4.2 Eosinophils % 0.2 Basophils % 0.2 Nucleated Red Blood Cells % 0.0 Neutrophils # 16.0 H Lymphocytes # 1.3 Monocytes # 0.8 Eosinophils # 0.0 Basophils # 0.0 Nucleated Red Blood Cells # 0.0 Sodium Level 130 L Potassium Level 4.2 Chloride Level 86 L Carbon Dioxide Level 31 Anion Gap 17 H Blood Urea Nitrogen 26 H Creatinine 1.00 Glucose Level 614 *H Calcium Level 9.8 Total Bilirubin 0.5 Direct Bilirubin 0.00 Indirect Bilirubin 0.5 Aspartate Amino Transf (AST/SGOT) 25 Alanine Aminotransferase (ALT/SGPT) 41 Alkaline Phosphatase 145 H Total Protein 8.7 H Albumin 3.9 Globulin 4.80 H Albumin/Globulin Ratio 0.81 Lipase 173 Bedside Urine pH (LAB) 5.5 Bedside Urine Protein (LAB) Negative Bedside Urine Glucose (UA) 0.50% H Bedside Urine Ketones (LAB) Negative Bedside Urine Blood Negative Bedside Urine Nitrite (LAB) Negative Bedside Urine Leukocyte Esterase (L Negative Bedside Glucose 568 *H 480 *H Test 11/12/16 01:17 11/12/16 03:15 11/12/16 10:23 11/12/16 12:18 Bedside Glucose 466 *H 366 H 367 H 347 H Test 11/12/16 14:05 Prothrombin Time 14.0 Prothrombin Time Ratio 1.1 INR International Normalized Ratio 1.08 Activated Partial Thromboplast Time 34.4 Medications Medications Current Medications Ondansetron HCl (Zofran Inj) 4 mg Q6H PRN IV NAUSEA AND/OR VOMITING; Start at 08:30 Acetaminophen (Tylenol Supp) 650 mg Q6H PRN NC PAIN LEVEL 1-3 OR FEVER; Start 11/12/16 at 08:30 Morphine Sulfate (morphine) 3 mg Q4H PRN IV SEVERE PAIN LEVEL 7-10; Start 11/12 at 08:30 Famotidine (Pepcid Iv) 20 mg Q12 IV Last administered on 11/12/16 10:48; Admin Dose 20 MG; Start 11/12/16 at 09:00 Insulin Aspart NOVOLOG *MODERATE* ALGORI... Q6 SC Last administered on 13:18; Admin Dose 10 UNIT; Start 11/12/16 at 12:00 Sodium Chloride (NS) 1,000 ml @ 100 mls/hr Q10H IV Last administered on 10:48; Admin Dose 100 MLS/HR; Start 11/12/16 at 08:30 Miscellaneous Information 1 ea NOTE XX ; Start 11/12/16 at 09:00 Glucose (Glutose) 15 gm Q15M PRN PO DECREASED GLUCOSE; Start 11/12/16 at 09:00 Glucose (Glutose) 22.5 gm Q15M PRN PO DECREASED GLUCOSE; Start 11/12/16 at 09: 00 Dextrose (D50w Syringe) 25 ml Q15M PRN IV DECREASED GLUCOSE; Start 11/12/16 at 09:00 Dextrose (D50w Syringe) 50 ml Q15M PRN IV DECREASED GLUCOSE; Start 11/12/16 at 09:00 Glucagon (Glucagen) 1 mg Q15M PRN IM DECREASED GLUCOSE; Start 11/12/16 at 09:00 Glucose (Glutose) 15 gm Q15M PRN BUCCAL DECREASED GLUCOSE; Start 11/12/16 at 09 :00 Insulin Glargine 36 unit 36 unit DAILY@09 SC Last administered on 11/12/16t 10: 51; Admin Dose 36 UNIT; Start 11/12/16 at 09:00 Piperacillin Sod/ Tazobactam Sod (Zosyn 3.375gm/ 100 ml (Pmx)) 100 ml @ 200 mls /hr Q6 IVPB ; Start 11/12/16 at 18:00 PREMA HARDWICK MD Nov 12, 2016 14:51
[2016-11-12] MEDS ORDERED: INSULIN ASPART [NOVOLOG] 3 ML PEN SC ONE ×2 (15:00→18:00)
--- NOTE | 2016-11-12 15:50 | CONS ---
HepatoPancreatoBiliary [place] Initial Inpatient Consultation Note DATE OF CONSULTATION: 11/12/2016 PLACE OF SERVICE: [facility], 6th floor ASSESSMENT AND PLAN: A very pleasant 56-year-old gentleman with multiple comorbid issues, including a BMI of 42.2, as well as hypertension and diabetes, who seems to have more abdominal pain after laparoscopic cholecystectomy. It is not clear to me whether the patient has a bile leak and we are awaiting further testing in the form of HIDA scan, as well as possible MRCP, if the patient's claustrophobia will allow it, in order to further delineate the anatomy and presence of any bile leak. It appears to me that the infundibulum of the gallbladder is still in place and there is a staple line across the area above that. There is also a significant amount of small residual gallstones that appear on the CT scan to be present as well. The common bile duct is further away from this area and likely is intact. There is also no evidence of pancreatitis. Given the patient's abdominal pain and white blood cell count, he should certainly be in-house and treated with intravenous antimicrobials. If the patient can have MRCP, this may alleviate the need for an ERCP, but if the patient has any evidence of a bile leak, then the first recommendation would be an ERCP. I do not see any indication for acute surgical intervention or percutaneous drain placement at this time, but we should have expedited workup in order to further delineate the etiology and then further plans can be made based on this evidence Note that I discussed all of these with the patient , as well as his daughter, and answered all their questions to the best of my ability. The patient and daughter appeared to understand and agreed with the plans. With the above assessment I have recommended the followin. HIDA scan. 2. MRCP. 3. ERCP, if not able to tolerate MRCP due to claustrophobia. 4. Broad-spectrum antimicrobials. 5. Keep in-house. 6. Treat symptoms. 7. Check labs in the a.m. 8. Multidisciplinary discussion. Thank you again for allowing us to participate in the care of this very pleasant gentleman and his wonderful family. If there are any questions, please feel free to call me at [phone]. TOTAL VISIT TIME: 45 minutes, of which more than half was spent in face-to- face discussion with the patient, discussions with his daughter, as well as coordination of care between multiple physicians and providers. UPDATED CLINICAL SUMMARY: The patient is a very pleasant 56-year-old gentleman with multiple comorbid issues, including a BMI of 42.2, as well as diabetes mellitus and hypertension, who underwent a laparoscopic cholecystectomy for symptomatic cholelithiasis on 11/05/2016. He was readmitted to the hospital on 11/12/2016 at [facility] with abdominal pain with associated nausea. COMORBIDITIES: 1. BMI of 42.2. 2. Hypertension. 3. Diabetes mellitus type 2. 4. History of known cholelithiasis since July of 2006, or perhaps earlier. 5. History of incarcerated ventral hernia repair, status post repair 08/18/2006 , followed by reoperation on 10/03/[address] Akhtar. 6. Status post phimosis repair 03/21/2009. 7. History of right leg cellulitis, requiring inpatient and outpatient treatment with PICC line placement, and recurrence of leg cellulitis of 2014. Issues with diabetic foot ulcers for a number of years. 8. History of flat colon polyp removed from cecum 07/06/2016, showing evidence for adenocarcinoma, moderately differentiated, and a small focus of residual tubular adenoma present. 9. History of tubular adenoma with resection from sigmoid colon, as well as the rectum. 10. Status post repeat colonoscopy on 09/13/2016, with no further visualization of any abnormalities. DATE OF ADMISSION: 11/12/2016 HISTORY OF PRESENT ILLNESS: The patient is a very pleasant 56-year-old gentleman with the above-mentioned comorbidities, whom we were kindly asked to consult regarding management of postoperative abdominal pain with a suspicion for possible bile leak or other issues after cholecystectomy. The patient reported having improvement in his symptoms since admission, but he still has abdominal pain. He had not had a bowel movement for 3 days, but recently started having some here in the hospital. No reported significant fevers, chills or other complaints. ALLERGIES: ADHESIVE TAPE. MEDICATIONS: 1. Atorvastatin. 2. Hydrochlorothiazide. 3. Losartan. 4. Ibuprofen. 5. Insulin. 6. Metformin. 7. Sitagliptin. SOCIAL HISTORY: The patient is and has 3 children. He used to drink heavy, up to a 12-pack of beer per day, but reportedly stopped a few months ago. He also reported smoking in the past. No intravenous drug use reported. FAMILY HISTORY: No major reported medical, surgical or oncologic problems in the family. REVIEW OF SYSTEMS: Other than the above-mentioned, there are no other pertinent positives or pertinent negatives in a complete 14-point review of systems. PHYSICAL EXAMINATION: GENERAL: The patient appears to be a very pleasant gentleman of descent, appearing his stated age, lying in bed comfortably and in no acute distress. BMI is 42.2. VITAL SIGNS: Temperature 98.3. Blood pressure 132/79, pulse 90, respiratory rate 21, pulse oximetry 93% on room air. HEENT: Normocephalic and atraumatic. Extraocular muscles and hearing are grossly intact bilaterally and symmetrically. Sclerae are nonicteric. Oral cavity is clear; oral mucosa appeared to be pink and moist. Dentition: fair. NECK: Supple. There is no lymphadenopathy or JVD. There is no submental, submandibular or supraclavicular lymphadenopathy. CHEST: Rises symmetrically with each breath; patient is breathing comfortably. There are no audible wheezes, rales or rhonchi on the gross exam. HEART: Pulse is regular and palpable on the left wrist. Capillary refill was normal. Carotid pulses are palpable bilaterally and symmetrically in the neck. EXTREMITIES: Lower extremities contain no pitting edema around the ankles bilaterally and symmetrically. ABDOMEN: Shows a recent 4-port incision for laparoscopic cholecystectomy, closed with oren. He has tenderness to palpation, mainly in the right flank area and mild guarding, but certainly no peritoneal signs. The patient has otherwise a soft abdomen, and it is protuberant, but not necessarily significantly distended. SKIN: Appears to be pink and feels warm to touch. NEUROLOGIC: Awake, alert, and follows commands appropriately. LABORATORY VALUES: White blood cell count 18.3, hemoglobin 12.8, platelet count 432. Electrolytes show sodium of 130, chloride 86, CO2 31, creatinine 1, glucose 614, total bilirubin 0.5, AST 25, ALT 41, alkaline phosphatase 145, albumin 3.9, lipase 173, INR 1.08. IMAGING: The patient had a chest x-ray that showed cardiomegaly and clear lungs. He also had an abdomen and pelvic CT on 11/11/2016 showing evidence for recent laparoscopic surgery with postoperative changes and mild free fluid surrounding the right lobe of the liver, extending into the pericolic gutter, and trace fluid in the peritoneum. There is also a mild fluid collection within the gallbladder fossa region, which may represent a postoperative seroma versus biloma. Multiple residual gallstones were seen within the gallbladder or cystic duct remnant. There is also retained stool. Note that I personally reviewed all these and pertinent available images, and I agree in general with their overall reported findings. Dictated By: LUCY HATHAWAY/JACOB Conf#: [id number] DID#: [id number] MTDD
[2016-11-12] MEDS: morphine 2 MG INJ IV PRN (18:03)
[2016-11-12] MEDS: PIPER-TAZO 3.375 GM IV (PMX) 100 ML IVPB SCH (18:05)
--- NOTE | 2016-11-12 18:13 | RADRPT ---
PROCEDURE: HIDA scan CLINICAL INDICATION: 56 -year-old patient with abdominal pain, status post cholecystectomy. TECHNIQUE: Following the intravenous injection of 8 point. mCi of Tc-99m mebrofenin, multiple imag es of the abdomen were obtained up to 60 minutes post injection. COMPARISON: No prior studies. FINDINGS: The liver is promptly visualized, demonstrates homogeneous distribution of radionuclide. Increased activity seen in the gallbladder fossa region and along the anterior margin of the right l obe of the liver, which is compatible with biliary leak. There is visualization of the common bile duct and gastrointestinal activity within normal time. IMPRESSION: 1. Status post cholecystectomy with areas of increased activity in the gallbladder fossa region and along the anterior margin of the right lobe of the liver with biliary leak. 2. No evidence of a common bile duct obstruction. RPTAT: HH .Mita Rhodes MD, MD Date Time Electronically viewed and signed by .Mita Rhodes MD, on 11/12/2016 18:12 .L/
[2016-11-12] MEDS: ACCU-CHEK XX SCH (19:50)
[2016-11-12 20:20] VITALS: BP 137/76; RESP 18
[2016-11-13] VITALS (12 sets, daily range): BP systolic 118–170; BP diastolic 65–85; PULSE 80–91; RESP 15–23
[2016-11-13] MEDS: PIPER-TAZO 3.375 GM IV (PMX) 100 ML IVPB SCH ×5 (00:07→23:57)
[2016-11-13] MEDS: ACCU-CHEK XX SCH ×4 (02:00→19:50)
--- NOTE | 2016-11-13 02:00 | CONS ---
DATE OF ADMISSION: 11/12/2016 DATE OF CONSULTATION: TYPE OF CONSULTATION: GASTROENTEROLOGY Dear Dr. Snow and : Thank you for asking me to see Mr. Gilmore in GI consultation. HISTORY OF PRESENT ILLNESS: As you know, the patient is a 56-year-old gentleman. He has b een experiencing abdominal pain since yesterday. He underwent a laparoscopic cholecystectomy 1 week ago. He did well after the surgery until yesterday when he was in the shower, while standing, he h ad excruciating abdominal pain and hence he was brought to the emergency room and the CAT scan of th e abdomen was done which showed evidence of a recent laparoscopic surgery, free fluid noted surround ing the right lobe of the liver, extending to the pericolic gutter and trace fluid in the peritoneum , status post cholecystectomy noted. Fluid collection noted within the gallbladder fossa region whi ch may represent postoperative seroma versus biloma. Multiple residual gallstones noted either in t he gallbladder or in the cystic duct remnant. The patient has other medical problems which includes high cholesterol, obesity, hypertension, diabe farnaz. MEDICATIONS PRIOR TO THE ADMISSION: Include: 1. Lipitor. 2. Losartan. 3. Hydrochlorothiazide. 4. Insulin. 5. Metformin. 6. Januvia. PHYSICAL EXAMINATION: GENERAL: The patient is a 56-year-old obese gentleman who at this time is alert, well built. He is obese. He is alert, not in distress. CARDIOVASCULAR: Normal heart sounds. RESPIRATORY: Normal breath sounds. ABDOMEN: Showed an obese abdomen with minimal discomfort upon examination. VITAL SIGNS: Temperature 98.3, pulse is 90, blood pressure is 132/79. LABORATORY WORKUP: PT is 14, WBC count 18,300, hemoglobin 12.8. A HIDA scan showed evidence of a biliary leak. CLINICAL IMPRESSION: Status post cholecystectomy 1 week, the patient having abdominal pain and CAT scan showed fluid in the gallbladder fossa, HIDA scan shows biliary leak. CLINICAL IMPRESSION: Biliary leak, status post cholecystectomy. PLAN: At this time, recommend ERCP. I explained this procedure to the patient, he agreed and we wi ll proceed with ERCP and stent placement. Dictated By: SUHA MARTIN/JACOB Conf#: [id number] DID#: [id number] CC: JOSELIN SNOW MD;*[facility]*
[2016-11-13] MEDS: SOD CHLORIDE 0.9% 1,000 ML IV SCH ×3 (03:25→22:58)
[2016-11-13] MEDS: INSULIN ASPART [NOVOLOG] 3 ML PEN SC SCH ×6 (06:35→19:10)
[2016-11-13 06:38] LABS: ADD SCAN DIFF NO
--- NOTE | 2016-11-13 07:19 | CONS ---
Date/Time of Note Date/Time of Note DATE: 11/13/16 TIME: 07:16 Assessment/Plan Assessment/Plan Problems: (1) Bile leak, postoperative Status: Acute Comment: As per the consultations from Dr. Howard and Dr. Philip this patient will need an ERCP with stent placement to stop the flow into the gallbladder remnant with stones. Once he settles down medically and the inflammation decreases he can be brought back for completion surgery and then removal of the stent. Please see consultations from GI and pancreatobiliary surgical service (2) Diabetes mellitus type 2 in obese Status: Chronic Comment: His sugar control is coming in line. Once were able to give him medicines orally we can make some further progress and will need also be careful as the inflammation decreases not to overshoot targets. For now were getting him at goal (3) Obesity (BMI 35.0-39.9 without comorbidity) Status: Chronic Comment: Will be n.p.o. for a while this will have some effect on this. Consultation Date/Type/Reason Admit Date/Time Nov 12, 2016 at 03:46 Initial Consult Date 11/12/16 Type of Consultation: Endocrinology Reason for Consultation Diabetes mellitus type 2 with poor control; status post laparoscopic cholecystectomy partial with bile leak; Referring Provider: JOSELIN HOROWITZ MD 24 HR Interval Summary Free Text/Dictation Patient reports his abdominal symptoms are a little bit better. Constitutional: no complaints (Denies fevers chills or sweats) Detailed Summary Respiratory: no complaints Cardiovascular: no complaints Gastrointestinal: pain (He reports a low to be able to drink something.) Exam/Review of Systems Vital Signs Vitals Vital Signs Date Time Temp Pulse Resp B/P Pulse Ox O2 Delivery O2 Flow Rate FiO2 11/12/16 20:20 99.0 89 18 137/76 93 11/12/16 06:41 Room Air Intake and Output 11/12/16 11/12/16 11/13/16 15:00 23:00 07:00 Intake Total 100 ml 600 ml 200 ml Balance 100 ml 600 ml 200 ml Exam Constitutional: alert, oriented Neck: non-tender, supple Respiratory: clear to auscultation, normal air movement Cardiovascular: nl pulses, regular rate and rhythm Gastrointestinal: nl liver, spleen, non-tender, soft Results Result Diagram: 11/11/16212211/11/162122 Results 24 hrs Laboratory Tests Test 11/12/16 10:23 11/12/16 11:34 11/12/16 12:18 11/12/16 14:05 Bedside Glucose 367 H 347 H Hemoglobin A1c 10.6 H Prothrombin Time 14.0 Prothrombin Time Ratio 1.1 INR International Normalized Ratio 1.08 Activated Partial Thromboplast Time 34.4 Test 11/12/16 14:08 11/12/16 17:18 11/12/16 23:35 11/13/16 05:29 Hepatitis B Surface Antigen NEGATIVE Hepatitis C Antibody NEGATIVE Bedside Glucose 301 H 227 H 231 H Medications Medications Current Medications Ondansetron HCl (Zofran Inj) 4 mg Q6H PRN IV NAUSEA AND/OR VOMITING; Start at 08:30 Acetaminophen (Tylenol Supp) 650 mg Q6H PRN [place] PAIN LEVEL 1-3 OR FEVER; Start 11/12/16 at 08:30 Morphine Sulfate (morphine) 3 mg Q4H PRN IV SEVERE PAIN LEVEL 7-10 Last administered on 11/12/16 18:03; Admin Dose 3 MG; Start 11/12/16 at 08:30 Famotidine (Pepcid Iv) 20 mg Q12 IV Last administered on 11/12/16 21:03; Admin Dose 20 MG; Start 11/12/16 at 09:00 Insulin Aspart NOVOLOG *MODERATE* ALGORI... Q6 SC Last administered on 06:35; Admin Dose 6 UNIT; Start 11/12/16 at 12:00 Sodium Chloride (NS) 1,000 ml @ 100 mls/hr Q10H IV Last administered on 10:48; Admin Dose 100 MLS/HR; Start 11/12/16 at 08:30 Miscellaneous Information 1 ea NOTE XX ; Start 11/12/16 at 09:00 Glucose (Glutose) 15 gm Q15M PRN PO DECREASED GLUCOSE; Start 11/12/16 at 09:00 Glucose (Glutose) 22.5 gm Q15M PRN PO DECREASED GLUCOSE; Start 11/12/16 at 09: 00 Dextrose (D50w Syringe) 25 ml Q15M PRN IV DECREASED GLUCOSE; Start 11/12/16 at 09:00 Dextrose (D50w Syringe) 50 ml Q15M PRN IV DECREASED GLUCOSE; Start 11/12/16 at 09:00 Glucagon (Glucagen) 1 mg Q15M PRN IM DECREASED GLUCOSE; Start 11/12/16 at 09:00 Glucose 15 gm 15 gm Q15M PRN BUCCAL DECREASED GLUCOSE; Start 11/12/16 at 09:00 Piperacillin Sod/ Tazobactam Sod (Zosyn 3.375gm/ 100 ml (Pmx)) 100 ml @ 200 mls /hr Q6 IVPB Last administered on 11/13/16t 05:31; Admin Dose 200 MLS/HR; Start 11/12/16 at 18:00 Diagnostic Test (Pha) (Accu-Chek) 1 ea 02 XX ; Start 11/13/16 at 02:00 Insulin Glargine (Lantus) 40 unit DAILY@09 SC ; Start 11/13/16 at 09:00 PREMA HARDWICK MD Nov 13, 2016 07:19
[2016-11-13 07:44] LABS: ALBUMIN 2.6 g/dl (3.3-4.9)
[2016-11-13 07:45] LABS: POTASSIUM 3.6 mmol/L (3.5-5.1)
[2016-11-13 07:47] LABS: ALBUMIN/GLOBULIN RATIO 0.78; BILIRUBIN,INDIRECT 0.8 mg/dl (0-1.1); BILIRUBIN,TOTAL 0.8 mg/dl (0.2-1.3); CREATININE 0.59 mg/dl (0.61-1.24); TOTAL PROTEIN 5.9 g/dl (6.1-8.1)
[2016-11-13 07:48] LABS: MAGNESIUM 1.3 mg/dl (1.7-2.5); PHOSPHORUS 3.3 mg/dl (2.5-4.9)
[2016-11-13 08:39] LABS: BASOPHIL # 0.1 10^3/ul (0.0-0.1); BASOPHILS % 0.4 % (0.0-2.0); EOSINOPHILS # 0.1 10^3/ul (0.0-0.5); EOSINOPHILS % 0.5 % (0.0-7.0); HEMOGLOBIN 11.4 g/dl (14.0-18.0); LYMPHOCYTES # 1.5 10^3/ul (0.8-2.9); LYMPHOCYTES % 12.1 % (15.0-51.0); MEAN CORPUSCULAR HEMOGLOBIN 29.9 pg (29.0-33.0); MEAN CORPUSCULAR HGB CONC 33.5 g/dl (32.0-37.0); MEAN CORPUSCULAR VOLUME 89.2 fl (82.0-101.0); MEAN PLATELET VOLUME 10.4 fl (7.4-10.4); MONOCYTE # 0.8 10^3/ul (0.3-0.9); NEUTROPHIL # 9.5 10^3/ul (1.6-7.5); NEUTROPHILS % 79.5 % (39.0-77.0); PLATELET COUNT 364 10^3/UL (140-415); RED BLOOD COUNT 3.81 10^6/ul (4.70-6.10); RED CELL DISTRIBUTION WIDTH 12.1 % (11.5-14.5)
[2016-11-13] MEDS: FAMOTIDINE 20 MG INJ IV SCH ×2 (08:58→21:42)
[2016-11-13] MEDS ORDERED: INSULIN GLARGINE [LANtus] 3 ML PEN SC SCH (09:00)
[2016-11-13] MEDS: INSULIN GLARGINE [LANtus] 3 ML PEN SC SCH (09:00)
[2016-11-13] MEDS: morphine 2 MG INJ IV PRN (12:40)
--- NOTE | 2016-11-13 15:38 | PN ---
Date/Time of Note Date/Time of Note DATE: 11/13/16 TIME: 15:36 Assessment/Plan VTE Prophylaxis VTE Prophylaxis Intervention: SCD's Lines/Catheters IV C[facility]ter [facility] (from [facility]): [place] Assessment/Plan Chief Complaint/Hosp Course Assessment and plan 1. Postop abdominal pain. Patient status post cholecystectomy with possible biliary leak. Tentative plan for ERCP. Multiple surgeon and GI following. Will follow up. Analgesics as needed. 2. Diabetes. [employer] following. Follow-up with insulin regimen. Monitor for clinical improvement 3. Essential hypertension. Continue antihypertensives and adjust as needed 4. Leukocytosis likely secondary to #1. Continue on antibiotic therapy for now. We will follow-up 5. Morbid obesity. Weight reduction was advised Disposition and plan: Continue with analgesics. Tentative plan for ERCP. Discussed plan of care with Dr. Aguiar Problems: Subjective 24 Hr Interval Summary Free Text/Dictation Still with reported abdominal pain. Exam/Review of Systems Vital Signs Vitals Vital Signs Date Time Temp Pulse Resp B/P Pulse Ox O2 Delivery O2 Flow Rate FiO2 11/13/16 08:06 98.8 98 22 118/76 97 11/12/16 06:41 Room Air Intake and Output 11/12/16 11/12/16 11/13/16 15:00 23:00 07:00 Intake Total 100 ml 600 ml 200 ml Balance 100 ml 600 ml 200 ml Exam General: Still with reported abdominal pain. Only minimal stress Eyes: Equal round reactive to light Neck: Supple nontender, no JVD Cardiac: Regular rate Pulmonary: No adventitious lungs GI: Tender upon palpation right upper abdominal quadrant Extremities: No edema bilateral Skin: CDI Neurologic: AL O 4 Results Result Diagram: 11/13/16 0820 11/13/16 0531 Results 24 hrs Laboratory Tests Test 11/12/16 17:18 11/12/16 23:35 11/13/16 05:29 11/13/16 05:31 Bedside Glucose 301 H 227 H 231 H Sodium Level 137 Potassium Level 3.6 Chloride Level 103 # Carbon Dioxide Level 28 Anion Gap 10 # Blood Urea Nitrogen 20 Creatinine 0.59 L Glucose Level 226 #H Calcium Level 8.0 L Phosphorus Level 3.3 Magnesium Level 1.3 L Total Bilirubin 0.8 Direct Bilirubin 0.00 Indirect Bilirubin 0.8 Aspartate Amino Transf (AST/SGOT) 26 Alanine Aminotransferase (ALT/SGPT) 38 Alkaline Phosphatase 108 Total Protein 5.9 #L Albumin 2.6 #L Globulin 3.30 H Albumin/Globulin Ratio 0.78 Test 11/13/16 08:20 11/13/16 08:56 11/13/16 12:35 White Blood Count 12.0 #H Red Blood Count 3.81 L Hemoglobin 11.4 L Hematocrit 34.0 L Mean Corpuscular Volume 89.2 Mean Corpuscular Hemoglobin 29.9 Mean Corpuscular Hemoglobin Concent 33.5 Red Cell Distribution Width 12.1 Platelet Count 364 Mean Platelet Volume 10.4 Neutrophils % 79.5 H Lymphocytes % 12.1 L Monocytes % 7.0 Eosinophils % 0.5 Basophils % 0.4 Nucleated Red Blood Cells % 0.0 Neutrophils # 9.5 H Lymphocytes # 1.5 Monocytes # 0.8 Eosinophils # 0.1 Basophils # 0.1 Nucleated Red Blood Cells # 0.0 Bedside Glucose 228 H 234 H Medications Medications Current Medications Ondansetron HCl (Zofran Inj) 4 mg Q6H PRN IV NAUSEA AND/OR VOMITING; Start at 08:30 Acetaminophen (Tylenol Supp) 650 mg Q6H PRN [place] PAIN LEVEL 1-3 OR FEVER; Start 11/12/16 at 08:30 Morphine Sulfate (morphine) 3 mg Q4H PRN IV SEVERE PAIN LEVEL 7-10 Last administered on 11/13/16 12:40; Admin Dose 3 MG; Start 11/12/16 at 08:30 Famotidine (Pepcid Iv) 20 mg Q12 IV Last administered on 11/13/16 08:58; Admin Dose 20 MG; Start 11/12/16 at 09:00 Insulin Aspart NOVOLOG *MODERATE* ALGORI... Q6 SC Last administered on 12:53; Admin Dose 6 UNIT; Start 11/12/16 at 12:00 Sodium Chloride (NS) 1,000 ml @ 100 mls/hr Q10H IV Last administered on 10:48; Admin Dose 100 MLS/HR; Start 11/12/16 at 08:30 Miscellaneous Information 1 ea NOTE XX ; Start 11/12/16 at 09:00 Glucose (Glutose) 15 gm Q15M PRN PO DECREASED GLUCOSE; Start 11/12/16 at 09:00 Glucose (Glutose) 22.5 gm Q15M PRN PO DECREASED GLUCOSE; Start 11/12/16 at 09: 00 Dextrose (D50w Syringe) 25 ml Q15M PRN IV DECREASED GLUCOSE; Start 11/12/16 at 09:00 Dextrose (D50w Syringe) 50 ml Q15M PRN IV DECREASED GLUCOSE; Start 11/12/16 at 09:00 Glucagon (Glucagen) 1 mg Q15M PRN IM DECREASED GLUCOSE; Start 11/12/16 at 09:00 Glucose 15 gm 15 gm Q15M PRN BUCCAL DECREASED GLUCOSE; Start 11/12/16 at 09:00 Piperacillin Sod/ Tazobactam Sod (Zosyn 3.375gm/ 100 ml (Pmx)) 100 ml @ 200 mls /hr Q6 IVPB Last administered on 11/13/16 12:41; Admin Dose 200 MLS/HR; Start 11/12/16 at 18:00 Diagnostic Test (Pha) (Accu-Chek) 1 ea 02 XX ; Start 11/13/16 at 02:00 Insulin Glargine (Lantus) 42 unit DAILY@09 SC Last administered on 11/13/16 09: 00; Admin Dose 42 UNIT; Start 11/13/16 at 09:00 ТАТЬЯНА OLVERA Nov 13, 2016 15:38
[2016-11-13] MEDS ORDERED: IOHEXOL 300MG/ML 30 ML BTL ONE (15:53)
[2016-11-13] MEDS ORDERED: SUCCINYLCHOLINE CHLORIDE 100 MG/5 ML SYG IV ONE (15:58)
[2016-11-13] MEDS ORDERED: LIDOCAINE 2% (SDV) 5 ML INJ ONE (15:58)
[2016-11-13] MEDS ORDERED: PROPOFOL 20 ML ONE ×2 (15:58→16:32)
[2016-11-13] MEDS ORDERED: MIDAZOLAM 1 MG/ML 2 ML INJ ONE (15:58)
[2016-11-13] MEDS ORDERED: ONDANSETRON 4 MG INJ IV PRN (16:00)
[2016-11-13] MEDS ORDERED: FENTAnyl 50 MCG/ML VIAL IV PRN (16:00)
[2016-11-13] MEDS ORDERED: hydrALAzine 20 MG INJ IV PRN ×2 (16:00→17:30)
[2016-11-13] MEDS ORDERED: HYDROmorphONE (0.2 MG/ML) 10ML SYG IV PRN (16:00)
[2016-11-13] MEDS ORDERED: INSULIN ASPART [NOVOLOG] 3 ML PEN SC ONE (16:00)
[2016-11-13] MEDS ORDERED: LABETALOL HCL 20MG INJ IV PRN ×2 (16:00→17:30)
[2016-11-13] MEDS ORDERED: CEFAZOLIN 1 GM INJ ONE (16:15)
[2016-11-13] MEDS ORDERED: INDOMETHACIN 50 MG SUPP PR ONE (16:30)
[2016-11-13] MEDS ORDERED: EPHEDrine SULFATE 50 MG/5 ML SYG ONE (16:32)
[2016-11-13] MEDS ORDERED: ONDANSETRON 4 MG INJ ONE (16:57)
--- NOTE | 2016-11-13 20:04 | RADRPT ---
PROCEDURE: Intraoperative imaging for ERCP with fluoroscopy. CLINICAL INDICATION: Right upper quadrant pain. Intraoperative. TECHNIQUE: 12 images of the right upper quadrant of the abdomen were obtained in the operating prudencio m with an image intensifier. No radiologist was in attendance. 99.8 seconds of fluoroscopy time wa s used. COMPARISON: CT scan of the abdomen and pelvis dated 11/12/2016 and nuclear medicine hepatic biliar y scan dated 11/12/2016 which demonstrated a bile leak. FINDINGS: Images demonstrate the endoscope in position and contrast injected into the common bile duct. There is a bile leak from the cystic duct region. A stent was placed in the common bile duct. IMPRESSION: 1. Bile leak from the cystic duct region. 2. Placement of stent and common bile duct. RPTAT: QQ .Larry Nava MD, Date Time Electronically viewed and signed by .Larry Nava MD, on 11/13/2016 20:04 .R/
--- NOTE | 2016-11-13 22:54 | PN ---
Date/Time of Note Date/Time of Note DATE: 11/13/16 TIME: 16:18 Assessment/Plan Lines/Catheters IV [facility] Per[facility] IV Assessment/Plan Assessment/Plan [facility] Progress Note Date of Service: 11/13/16 Today's Impression & Plan: Overall stable. ERCP performed today (I was in the room with Dr. Philip and the stent appears to be in good position. Will be able to observe for now. Leak seems to be contained within the gallbladder fossa. If no symptoms, may be able to avoid percutaneous drain placement. With above assessment, I've recommended the following for today: 1. Cont current management 2. Broad spectrum antimicrobials 3. Keep inhouse Thank you again for your great care of this very pleasant patient and wonderful family. If there are any questions, please feel free to call me at [phone]. TOTAL VISIT TIME: 20 minutes of which more than half was spent at bedside in the OR as well as coordination of care between multiple physicians and providers. Disclaimer: Inadvertent spelling or grammatical errors are likely due to EHR/ dictation software use and do not reflect on the overall quality of patient care. Updated Clinical Summary: A very pleasant 56-year-old gentleman with multiple comorbid issues, including a BMI of 42.2, as well as hypertension and diabetes, who seems to have more abdominal pain after laparoscopic cholecystectomy. It is not clear to me whether the patient has a bile leak and we are awaiting further testing in the form of HIDA scan, as well as possible MRCP, if the patient's claustrophobia will allow it, in order to further delineate the anatomy and presence of any bile leak. It appears to me that the infundibulum of the gallbladder is still in place and there is a staple line across the area above that. There is also a significant amount of small residual gallstones that appear on the CT scan to be present as well. The common bile duct is further away from this area and likely is intact. There is also no evidence of pancreatitis. Given the patient 's abdominal pain and white blood cell count, he should certainly be in-house and treated with intravenous antimicrobials. If the patient can have MRCP, this may alleviate the need for an ERCP, but if the patient has any evidence of a bile leak, then the first recommendation would be an ERCP. I do not see any indication for acute surgical intervention or percutaneous drain placement at this time, but we should have expedited workup in order to further delineate the etiology and then further plans can be made based on this evidence Note that I discussed all of these with the patient, as well as his daughter, and answered all their questions to the best of my ability. The patient and daughter appeared to understand and agreed with the plans. With the above assessment I have recommended the followin. Cont current cares 2. Cont broad-spectrum antimicrobials. 3. Keep in-house. 4. Treat symptoms. 5. Check labs in the a.m. 6. Multidisciplinary discussion. Thank you again for allowing us to participate in the care of this very pleasant gentleman and his wonderful family. If there are any questions, please feel free to call me at [phone]. TOTAL VISIT TIME: 20 minutes, of which more than half was spent at bedside in the operating room, as well as coordination of care between multiple physicians and providers. UPDATED CLINICAL SUMMARY: The patient is a very pleasant 56-year-old gentleman with multiple comorbid issues, including a BMI of 42.2, as well as diabetes mellitus and hypertension, who underwent a laparoscopic cholecystectomy for symptomatic cholelithiasis on 11/05/2016. He was readmitted to the hospital on 11/12/2016 at [facility] with abdominal pain with associated nausea. COMORBIDITIES: 1. BMI of 42.2. 2. Hypertension. 3. Diabetes mellitus type 2. 4. History of known cholelithiasis since July of 2006, or perhaps earlier. 5. History of incarcerated ventral hernia repair, status post repair 08/18/2006 , followed by reoperation on 10/03/[address] Akhtar. 6. Status post phimosis repair 03/21/2009. 7. History of right leg cellulitis, requiring inpatient and outpatient treatment with PICC line placement, and recurrence of leg cellulitis of 2014. Issues with diabetic foot ulcers for a number of years. 8. History of flat colon polyp removed from cecum 07/06/2016, showing evidence for adenocarcinoma, moderately differentiated, and a small focus of residual tubular adenoma present. 9. History of tubular adenoma with resection from sigmoid colon, as well as the rectum. 10. Status post repeat colonoscopy on 09/13/2016, with no further visualization of any abnormalities. Subjective: No major reported events or complaints; patient undergoing ERCP at the time of my visit Objective: Vitals: See below Exam: GENERAL: On exam, the patient was laying prone on the OR table undergoing ERCP under general anesthesia. Exam/Review of Systems Vital Signs Vitals Vital Signs Date Time Temp Pulse Resp B/P Pulse Ox O2 Delivery O2 Flow Rate FiO2 11/13/16 20:08 98.5 76 20 138/65 95 11/13/16 17:58 Room Air 11/13/16 17:17 8.0 Intake and Output 11/12/16 11/12/16 11/13/16 15:00 23:00 07:00 Intake Total 100 ml 600 ml 200 ml Balance 100 ml 600 ml 200 ml Results Result Diagram: 11/13/16 0820 11/13/16 0531 LUCY KING M.D. Nov 13, 2016 22:54
[2016-11-14] MEDS: SOD CHLORIDE 0.9% 1,000 ML IV SCH ×2 (00:30→10:30)
[2016-11-14] MEDS: ACCU-CHEK XX SCH ×4 (02:00→19:27)
--- NOTE | 2016-11-14 02:52 | PN ---
DATE: 11/13/2016 SUBJECTIVE: The patient is not on the floor. Apparently, patient has been taken down to the operating room for performance of ERCP and possibly placement of a stent by Dr. Philip. Apparently this patient had a laparoscopic cholecystectomy about 9 days ago, was readmitted on 11/11/2016 because of right upper quadrant abdominal pain and leukocyte count 18,300 with 85% segmented and evaluation revealed a CT scan was done and revealed presence of some fluid collection in the gallbladder fossa and also HIDA scan which was done yesterday revealed presence of some leaking in the gallbladder fossa area. Dr. Philip saw the patient in consultation. He recommended ERCP. Dr. Howard saw the patient in consultation and recommended MRCP if it is doable. If it was not done, then he recommended also ERCP and apparently the MRCP has not been done because I cannot find any evidence in the chart or computer and then today, like I said, he is doing ERCP and most probably he suggested placement of a stent in the cystic duct and collection in the common bile duct. OBJECTIVE: Only ____ VITAL SIGNS: The temperature today is 98.8, heart rate 98, respirations 22, blood pressure 118/76, saturation 97% on room air. LABORATORY DATA: Today, WBC dropped to 12,000 with 79.5% neutrophils, hemoglobin 11.4, hematocrit 34. Chemistry today reveals normal potassium 3.6, BUN 20, creatinine 0.59, glucose 226. Direct bilirubin 0, indirect bilirubin 0.8, AST 26, ALT 38, alkaline phosphatase is 108, total protein 5.9, albumin 2.6. It should be mentioned that on admission on 11/11/2016 at 2123 the blood sugars on admission to the emergency room was 614. Patient is being treated by the lithograph press operator tinware as apparently diabetes is a concern and the last blood sugar today POC is 234. ASSESSMENT: The patient is status post laparoscopic cholecystectomy. The patient has a lot of comorbidities: Diabetes, high blood pressure, hyperlipidemia, obesity and pain of the operation site with fluid accumulation in the gallbladder fossa with leukocytosis. Antibiotic has been started and a HIDA scan showed evidence of a leak. ERCP is being done today. PLAN: Per Dr. Philip, is to put a stent after the ERCP and continue antibiotics and observe the patient. Dr. Howard and other colleagues are following the patient. Dictated By: MIKE BEAN MD PS/NTS Conf#: [id number] DID#: [id number] MTDD
[2016-11-14] MEDS: PIPER-TAZO 3.375 GM IV (PMX) 100 ML IVPB SCH ×3 (05:47→17:09)
--- NOTE | 2016-11-14 06:13 | GILP ---
DATE OF PROCEDURE: NAME OF PROCEDURE: Endoscopic retrograde cholangiopancreatography, sphincterotomy, and common bile duct stent placement. PREOPERATIVE DIAGNOSIS: The patient had a cholecystectomy a week ago and subsequently presented wit h a history of abdominal pain, white count elevation 18,000. CAT scan of the abdomen showed evidenc e of a fluid collection in the area of the gallbladder and also along the liver and right paracolic gutter. HIDA scan showed evidence of biliary leak, and because of this, procedure is performed to i nsert CBD stent to block the cystic duct leak. DESCRIPTION OF PROCEDURE: After the informed written consent was obtained, the patient was intubate d by anesthesiologist, Dr. [place]. When the patient became somnolent, the Olympus video side-viewing duodenoscope was inserted into the oropharynx, then into the esophagus, and subsequently into the st omach and duodenum. Ampulla was located in normal location with normal morphology. At this time, b y using the Dreamtome, cannulation of the common bile duct was performed. The common bile duct show ed evidence of a cystic duct, and the contrast went right into the cystic duct and also into the gal lbladder which seems to be part of the gallbladder. He probably could have had a partial cholecyste ctomy. Multiple stones were also noted in the gallbladder or maybe in the cystic duct. At this time, minimal sphincterotomy was performed. About 3 to 4 mm cut was made by using the [employer] tome cutting wire. Then, Dreamtome was removed leaving the guidewire behind, and over the guidewire , a 10 x 7 [place] type of endobiliary prosthesis was inserted into the common bile duct, across t he cystic duct area, across the ampulla, into the duodenum. Photographs were obtained, and the proc edure was terminated. PLAN: Recommend continue antibiotic therapy. Dictated By: SUHA DAWSON MD NC/NTS Conf#: [id number] DID#: [id number] CC: LUCY KING MD; DANIEL BEAL MD; JOSELIN HOROWITZ MD;*EndCC*
[2016-11-14 06:23] LABS: ADD SCAN DIFF NO
[2016-11-14 06:41] LABS: BASOPHILS % 0.3 % (0.0-2.0); EOSINOPHILS # 0.2 10^3/ul (0.0-0.5); EOSINOPHILS % 1.6 % (0.0-7.0); HEMATOCRIT 30.9 % (42.0-52.0); HEMOGLOBIN 10.1 g/dl (14.0-18.0); LYMPHOCYTES # 1.6 10^3/ul (0.8-2.9); LYMPHOCYTES % 15.8 % (15.0-51.0); MEAN CORPUSCULAR HEMOGLOBIN 29.8 pg (29.0-33.0); MEAN CORPUSCULAR HGB CONC 32.7 g/dl (32.0-37.0); MEAN CORPUSCULAR VOLUME 91.2 fl (82.0-101.0); MEAN PLATELET VOLUME 10.8 fl (7.4-10.4); MONOCYTE # 0.8 10^3/ul (0.3-0.9); NEUTROPHIL # 7.3 10^3/ul (1.6-7.5); NEUTROPHILS % 73.9 % (39.0-77.0); PLATELET COUNT 289 10^3/UL (140-415); RED BLOOD COUNT 3.39 10^6/ul (4.70-6.10); WHITE BLOOD COUNT 9.9 10^3/ul (4.8-10.8)
[2016-11-14 07:01] LABS: ALBUMIN 2.7 g/dl (3.3-4.9)
[2016-11-14 07:02] LABS: POTASSIUM 3.4 mmol/L (3.5-5.1)
[2016-11-14 07:04] LABS: BILIRUBIN,INDIRECT 0.6 mg/dl (0-1.1); BILIRUBIN,TOTAL 0.6 mg/dl (0.2-1.3); CREATININE 0.68 mg/dl (0.61-1.24)
[2016-11-14 07:05] LABS: ALBUMIN/GLOBULIN RATIO 0.77; CALCIUM 7.4 mg/dl (8.4-10.2); TOTAL PROTEIN 6.2 g/dl (6.1-8.1)
--- NOTE | 2016-11-14 07:47 | PN ---
Date/Time of Note Date/Time of Note DATE: 11/14/16 TIME: 07:41 Assessment/Plan Lines/Catheters IV Catheter Type (from [facility]): Peripheral IV Assessment/Plan Assessment/Plan [facility] Progress Note Date of Service: 11/14/16 Today's Impression & Plan: Overall stable and improved. Leak seems to be controlled. If no symptoms, may be able to avoid percutaneous drain placement and start d/c planning. Had a long discussion with patient and family explaining our findings from yesterday and the overall plan for the next few months. Answered all questions and patient and family appeared to understand and agreed with the plans. With above assessment, I've recommended the following for today: 1. Cont current management 2. Broad spectrum antimicrobials but with conversion to oral regimen and perhaps a 5 day course as an outpatient once leaves the hospital 3. Saline lock IV 4. Advance diet 5. Increase activity 6. D/c oren 7. Keep inhouse Thank you again for your great care of this very pleasant patient and wonderful family. If there are any questions, please feel free to call me at [phone]. TOTAL VISIT TIME: 20 minutes of which more than half was spent at bedside in the OR as well as coordination of care between multiple physicians and providers. Disclaimer: Inadvertent spelling or grammatical errors are likely due to EHR/ dictation software use and do not reflect on the overall quality of patient care. Updated Clinical Summary: A very pleasant 56-year-old gentleman with multiple comorbid issues, including a BMI of 42.2, as well as hypertension and diabetes, who seems to have more abdominal pain after laparoscopic cholecystectomy. It is not clear to me whether the patient has a bile leak and we are awaiting further testing in the form of HIDA scan, as well as possible MRCP, if the patient's claustrophobia will allow it, in order to further delineate the anatomy and presence of any bile leak. It appears to me that the infundibulum of the gallbladder is still in place and there is a staple line across the area above that. There is also a significant amount of small residual gallstones that appear on the CT scan to be present as well. The common bile duct is further away from this area and likely is intact. There is also no evidence of pancreatitis. Given the patient 's abdominal pain and white blood cell count, he should certainly be in-house and treated with intravenous antimicrobials. If the patient can have MRCP, this may alleviate the need for an ERCP, but if the patient has any evidence of a bile leak, then the first recommendation would be an ERCP. I do not see any indication for acute surgical intervention or percutaneous drain placement at this time, but we should have expedited workup in order to further delineate the etiology and then further plans can be made based on this evidence Note that I discussed all of these with the patient, as well as his daughter, and answered all their questions to the best of my ability. The patient and daughter appeared to understand and agreed with the plans. With the above assessment I have recommended the followin. Cont current cares 2. Cont broad-spectrum antimicrobials. 3. Keep in-house. 4. Treat symptoms. 5. Check labs in the a.m. 6. Multidisciplinary discussion. Thank you again for allowing us to participate in the care of this very pleasant gentleman and his wonderful family. If there are any questions, please feel free to call me at [phone]. TOTAL VISIT TIME: 20 minutes, of which more than half was spent at bedside in the operating room, as well as coordination of care between multiple physicians and providers. UPDATED CLINICAL SUMMARY: The patient is a very pleasant 56-year-old gentleman with multiple comorbid issues, including a BMI of 42.2, as well as diabetes mellitus and hypertension, who underwent a laparoscopic cholecystectomy for symptomatic cholelithiasis on 11/05/2016. He was readmitted to the hospital on 11/12/2016 at [facility] with abdominal pain with associated nausea. COMORBIDITIES: 1. BMI of 42.2. 2. Hypertension. 3. Diabetes mellitus type 2. 4. History of known cholelithiasis since July of 2006, or perhaps earlier. 5. History of incarcerated ventral hernia repair, status post repair 08/18/2006 , followed by reoperation on 10/03/[address] Akhtar. 6. Status post phimosis repair 03/21/2009. 7. History of right leg cellulitis, requiring inpatient and outpatient treatment with PICC line placement, and recurrence of leg cellulitis of 2014. Issues with diabetic foot ulcers for a number of years. 8. History of flat colon polyp removed from cecum 07/06/2016, showing evidence for adenocarcinoma, moderately differentiated, and a small focus of residual tubular adenoma present. 9. History of tubular adenoma with resection from sigmoid colon, as well as the rectum. 10. Status post repeat colonoscopy on 09/13/2016, with no further visualization of any abnormalities. 11. S/p laparoscopic cholecystectomy for symptomatic cholelithiasis on [address] García 12. S/p ERCP with CBD stenting by Dr. Philip 11/14/16 (bile leak found at staple line, but appeared to be contained within GB fossa) Subjective: No major events or complaints; no major abd pain and under control with medications; no n/v/d; no sob or cp; + flatus; - BM; - activity Objective: Vitals: See below Exam: GENERAL: On exam, the patient was laying in bed and appeared to be comfortable and in no acute distress. ABDOMEN: Soft, nontender and nondistended. Incisions are clean, dry and intact without any evidence of erythema, edema, discharge, or hernia. There are no peritoneal signs or guarding. SKIN: Skin appears to be pink and feels warm to touch. NEUROLOGIC: Patient is awake, alert, and follows commands appropriately. Exam/Review of Systems Vital Signs Vitals Vital Signs Date Time Temp Pulse Resp B/P Pulse Ox O2 Delivery O2 Flow Rate FiO2 11/13/16 20:08 98.5 76 20 138/65 95 11/13/16 17:58 Room Air 11/13/16 17:17 8.0 Intake and Output 11/13/16 11/13/16 11/14/16 15:00 23:00 07:00 Intake Total 100 ml 500 ml 1450 ml Balance 100 ml 500 ml 1450 ml Results Result Diagram: 11/14/16 0447 11/14/16 0447 LUCY KING M.D. Nov 14, 2016 07:47
[2016-11-14] MEDS: FAMOTIDINE 20 MG INJ IV SCH ×2 (08:03→21:00)
[2016-11-14 08:14] VITALS: BP 116/62; RESP 16
[2016-11-14] MEDS: INSULIN GLARGINE [LANtus] 3 ML PEN SC SCH (08:19)
[2016-11-14] MEDS: INSULIN ASPART [NOVOLOG] 3 ML PEN SC SCH ×3 (08:19→17:18)
[2016-11-14] MEDS ORDERED: POTASSIUM CHLORIDE (SR) 20 MEQ TAB PO STA (11:12)
--- NOTE | 2016-11-14 11:23 | CONS ---
Date/Time of Note Date/Time of Note DATE: 11/14/16 TIME: 11:19 Assessment/Plan Assessment/Plan Problems: (1) Diabetes mellitus type 2 in obese Status: Chronic Comment: CXan now start to resume outpatient regimen as improvong and taking P.O. (2) Obesity (BMI 35.0-39.9 without comorbidity) Status: Chronic Comment: counselled, calorie restriction (3) Bile leak, postoperative Status: Acute Comment: S/P stent with success. Will need follow up procedures later this year Consultation Date/Type/Reason Admit Date/Time Nov 12, 2016 at 03:46 Initial Consult Date 11/12/16 Type of Consultation: Endocrinology Reason for Consultation diabetes mellitus 2; biliary leak post op; Referring Provider: JOSELIN HOROWITZ MD 24 HR Interval Summary Constitutional: improved Detailed Summary Respiratory: no complaints Cardiovascular: no complaints Gastrointestinal: pain Exam/Review of Systems Vital Signs Vitals Vital Signs Date Time Temp Pulse Resp B/P Pulse Ox O2 Delivery O2 Flow Rate FiO2 11/14/16 08:14 97.9 82 16 116/62 96 11/13/16 17:58 Room Air 11/13/16 17:17 8.0 Intake and Output 11/13/16 11/13/16 11/14/16 15:00 23:00 07:00 Intake Total 100 ml 500 ml 1450 ml Balance 100 ml 500 ml 1450 ml Exam Constitutional: alert, oriented Respiratory: clear to auscultation, normal air movement Cardiovascular: nl pulses, regular rate and rhythm Results Result Diagram: 11/14/16 0447 11/14/16 0447 Results 24 hrs Laboratory Tests Test 11/13/16 12:35 11/13/16 17:16 11/13/16 18:31 11/13/16 20:03 Bedside Glucose 234 H 197 176 159 Test 11/14/16 04:47 11/14/16 07:51 11/14/16 10:07 White Blood Count 9.9 Red Blood Count 3.39 L Hemoglobin 10.1 L Hematocrit 30.9 L Mean Corpuscular Volume 91.2 Mean Corpuscular Hemoglobin 29.8 Mean Corpuscular Hemoglobin Concent 32.7 Red Cell Distribution Width 12.0 Platelet Count 289 # Mean Platelet Volume 10.8 H Neutrophils % 73.9 Lymphocytes % 15.8 Monocytes % 8.0 Eosinophils % 1.6 Basophils % 0.3 Nucleated Red Blood Cells % 0.0 Neutrophils # 7.3 Lymphocytes # 1.6 Monocytes # 0.8 Eosinophils # 0.2 Basophils # 0.0 Nucleated Red Blood Cells # 0.0 Erythrocyte Sedimentation Rate 105 H Sodium Level 138 Potassium Level 3.4 L Chloride Level 104 Carbon Dioxide Level 31 Anion Gap 6 L Blood Urea Nitrogen 20 Creatinine 0.68 Glucose Level 170 Calcium Level 7.4 L Total Bilirubin 0.6 Direct Bilirubin 0.00 Indirect Bilirubin 0.6 Aspartate Amino Transf (AST/SGOT) 30 Alanine Aminotransferase (ALT/SGPT) 36 Alkaline Phosphatase 118 Total Protein 6.2 Albumin 2.7 L Globulin 3.50 H Albumin/Globulin Ratio 0.77 Bedside Glucose 175 290 H Medications Medications Current Medications Ondansetron HCl (Zofran Inj) 4 mg Q6H PRN IV NAUSEA AND/OR VOMITING; Start at 08:30 Acetaminophen (Tylenol Supp) 650 mg Q6H PRN [place] PAIN LEVEL 1-3 OR FEVER; Start 11/12/16 at 08:30 Morphine Sulfate (morphine) 3 mg Q4H PRN IV SEVERE PAIN LEVEL 7-10 Last administered on 11/13/16 12:40; Admin Dose 3 MG; Start 11/12/16 at 08:30 Famotidine 20 mg 20 mg Q12 IV Last administered on 11/14/16 08:03; Admin Dose 20 MG; Start 11/12/16 at 09:00 Sodium Chloride (NS) 1,000 ml @ 100 mls/hr Q10H IV Last administered on 22:58; Admin Dose 100 MLS/HR; Start 11/12/16 at 08:30 Miscellaneous Information 1 ea NOTE XX ; Start 11/12/16 at 09:00 Glucose (Glutose) 15 gm Q15M PRN PO DECREASED GLUCOSE; Start 11/12/16 at 09:00 Glucose (Glutose) 22.5 gm Q15M PRN PO DECREASED GLUCOSE; Start 11/12/16 at 09: 00 Dextrose (D50w Syringe) 25 ml Q15M PRN IV DECREASED GLUCOSE; Start 11/12/16 at 09:00 Dextrose (D50w Syringe) 50 ml Q15M PRN IV DECREASED GLUCOSE; Start 11/12/16 at 09:00 Glucagon (Glucagen) 1 mg Q15M PRN IM DECREASED GLUCOSE; Start 11/12/16 at 09:00 Glucose 15 gm 15 gm Q15M PRN BUCCAL DECREASED GLUCOSE; Start 11/12/16 at 09:00 Piperacillin Sod/ Tazobactam Sod (Zosyn 3.375gm/ 100 ml (Pmx)) 100 ml @ 200 mls /hr Q6 IVPB Last administered on 11/14/16 05:47; Admin Dose 200 MLS/HR; Start 11/12/16 at 18:00 Diagnostic Test (Pha) (Accu-Chek) 1 ea 02 XX ; Start 11/13/16 at 02:00 Insulin Glargine (Lantus) 42 unit DAILY@09 SC Last administered on 11/14/16 08: 19; Admin Dose 42 UNIT; Start 11/13/16 at 09:00 PREMA HARDWICK MD Nov 14, 2016 11:23
--- NOTE | 2016-11-14 11:29 | PN ---
Date/Time of Note Date/Time of Note DATE: 11/14/16 TIME: 11:21 Assessment/Plan VTE Prophylaxis VTE Prophylaxis Intervention: SCD's Lines/Catheters IV Catheter Type (from Nrs): Saline Lock Assessment/Plan Chief Complaint/Hosp Course Assessment and plan 1. Postop abdominal pain. Patient status post cholecystectomy with possible biliary leak. s/p ERCP with stent. improving. Cont with analgesics and abx. . Multiple surgeon and GI following. 2. Diabetes. Denial Resolution Specialist following. Follow-up with insulin regimen. improving at this time 3. Essential hypertension. Continue antihypertensives and adjust as needed 4. Leukocytosis likely secondary to #1. improved 5. Morbid obesity. Weight reduction was advised Disposition and plan: Continue with analgesics. s/p ercp. still with RUQ pain. await for clinical improvement. d/c when cleared by consultants Discussed plan of care with Dr. Aguiar Problems: Subjective 24 Hr Interval Summary Free Text/Dictation still reports having RUQ abd pain. able to tolerate food well. Exam/Review of Systems Vital Signs Vitals Vital Signs Date Time Temp Pulse Resp B/P Pulse Ox O2 Delivery O2 Flow Rate FiO2 11/14/16 08:14 97.9 82 16 116/62 96 11/13/16 17:58 Room Air 11/13/16 17:17 8.0 Intake and Output 11/13/16 11/13/16 11/14/16 15:00 23:00 07:00 Intake Total 100 ml 500 ml 1450 ml Balance 100 ml 500 ml 1450 ml Exam General: still reports with abd pain RUQ Eyes: Equal round reactive to light, no change Neck: no jvd Cardiac: Regular rate Pulmonary: No adventitious lungs still GI: Tender upon palpation right upper abdominal quadrant but less Extremities: No edema bilateral Skin: CDI Neurologic: AL O 4 Results Result Diagram: 11/14/16 0447 11/14/16 0447 Results 24 hrs Laboratory Tests Test 11/13/16 12:35 11/13/16 17:16 11/13/16 18:31 11/13/16 20:03 Bedside Glucose 234 H 197 176 159 Test 11/14/16 04:47 11/14/16 07:51 11/14/16 10:07 White Blood Count 9.9 Red Blood Count 3.39 L Hemoglobin 10.1 L Hematocrit 30.9 L Mean Corpuscular Volume 91.2 Mean Corpuscular Hemoglobin 29.8 Mean Corpuscular Hemoglobin Concent 32.7 Red Cell Distribution Width 12.0 Platelet Count 289 # Mean Platelet Volume 10.8 H Neutrophils % 73.9 Lymphocytes % 15.8 Monocytes % 8.0 Eosinophils % 1.6 Basophils % 0.3 Nucleated Red Blood Cells % 0.0 Neutrophils # 7.3 Lymphocytes # 1.6 Monocytes # 0.8 Eosinophils # 0.2 Basophils # 0.0 Nucleated Red Blood Cells # 0.0 Erythrocyte Sedimentation Rate 105 H Sodium Level 138 Potassium Level 3.4 L Chloride Level 104 Carbon Dioxide Level 31 Anion Gap 6 L Blood Urea Nitrogen 20 Creatinine 0.68 Glucose Level 170 Calcium Level 7.4 L Total Bilirubin 0.6 Direct Bilirubin 0.00 Indirect Bilirubin 0.6 Aspartate Amino Transf (AST/SGOT) 30 Alanine Aminotransferase (ALT/SGPT) 36 Alkaline Phosphatase 118 Total Protein 6.2 Albumin 2.7 L Globulin 3.50 H Albumin/Globulin Ratio 0.77 Bedside Glucose 175 290 H Medications Medications Current Medications Ondansetron HCl (Zofran Inj) 4 mg Q6H PRN IV NAUSEA AND/OR VOMITING; Start at 08:30 Acetaminophen (Tylenol Supp) 650 mg Q6H PRN [place] PAIN LEVEL 1-3 OR FEVER; Start 11/12/16 at 08:30 Morphine Sulfate (morphine) 3 mg Q4H PRN IV SEVERE PAIN LEVEL 7-10 Last administered on 11/13/16 12:40; Admin Dose 3 MG; Start 11/12/16 at 08:30 Famotidine 20 mg 20 mg Q12 IV Last administered on 11/14/16 08:03; Admin Dose 20 MG; Start 11/12/16 at 09:00 Sodium Chloride (NS) 1,000 ml @ 100 mls/hr Q10H IV Last administered on 22:58; Admin Dose 100 MLS/HR; Start 11/12/16 at 08:30 Miscellaneous Information 1 ea NOTE XX ; Start 11/12/16 at 09:00 Glucose (Glutose) 15 gm Q15M PRN PO DECREASED GLUCOSE; Start 11/12/16 at 09:00 Glucose (Glutose) 22.5 gm Q15M PRN PO DECREASED GLUCOSE; Start 11/12/16 at 09: 00 Dextrose (D50w Syringe) 25 ml Q15M PRN IV DECREASED GLUCOSE; Start 11/12/16 at 09:00 Dextrose (D50w Syringe) 50 ml Q15M PRN IV DECREASED GLUCOSE; Start 11/12/16 at 09:00 Glucagon (Glucagen) 1 mg Q15M PRN IM DECREASED GLUCOSE; Start 11/12/16 at 09:00 Glucose 15 gm 15 gm Q15M PRN BUCCAL DECREASED GLUCOSE; Start 11/12/16 at 09:00 Piperacillin Sod/ Tazobactam Sod (Zosyn 3.375gm/ 100 ml (Pmx)) 100 ml @ 200 mls /hr Q6 IVPB Last administered on 11/14/16t 05:47; Admin Dose 200 MLS/HR; Start 11/12/16 at 18:00 Diagnostic Test (Pha) (Accu-Chek) 1 ea 02 XX ; Start 11/13/16 at 02:00 Insulin Glargine (Lantus) 34 unit DAILY@09 SC ; Start 11/15/16 at 09:00; Status UNV Linagliptin (Tradjenta) 5 mg DAILY PO ; Start 11/14/16 at 11:30; Status UNV ТАТЬЯНА OLVERA Nov 14, 2016 11:29
[2016-11-14] MEDS: metFORMIN 500 MG TAB PO SCH ×2 (12:17→17:09)
[2016-11-14] MEDS: LINAGLIPTIN 5 MG TABLET PO SCH (12:18)
--- NOTE | 2016-11-14 16:10 | PN ---
DATE: SUBJECTIVE: I am following this patient for Dr. García. The patient is status post laparoscopic cholecystectomy 9 days ago and today is status post ERCP and placement of a stent in the common bile duct, across the cystic duct, 1 day ago. The patient states that since yesterday's procedure, now he feels much better and the pain is much less. No nausea, no vomiting, no fever, no chills and actually he said that he is refusing p.o. pain medication because he wants to tolerate. OBJECTIVE: VITAL SIGNS: Temperature 97.9, heart rate 82, respirations 16, blood pressure 116/62, saturating 96% on room air. ABDOMEN: Soft. Apparently, the oren have been removed and the wound in the supraumbilical area where the trocar had been placed, apparently after removing the oren it has opened up. They have applied Steri-Strips, but has not been able to hold it. I cleansed the wound with Betadine and put 4 sterile sponges on top of it and taped it to the abdominal wall area. Probably we have to leave the wound to heal by secondary intention. LABORATORIES: Today, WBC has dropped down to 9973.9% segmented, this all was within normal limits. Hemoglobin is 10.1, hematocrit 30.9. ESR is 105, very elevated. Chemistry today is iron 2.7. Calcium 7.4. BUN 20, creatinine 0.6. AST, ALT and bilirubin all within normal limits. Blood sugar at POC today documented between 175 and 290. ASSESSMENT AND PLAN: This is a 56-year-old very nice gentleman who has had laparoscopic cholecystectomy 9 days ago, presented to the hospital a few days ago with abdominal pain, mainly right upper quadrant, was evaluated with a CT scan which was suspicious for leak and accumulation of fluid in the gallbladder fossa. A HIDA scan suggestive of leak from the cystic duct area. GI consultation was obtained. Dr. Philip took the patient to the OR yesterday. He did ERCP and found a leak and put a stent across the common bile duct or cystic duct. Postop patient is doing fine and no complaint. PLAN: Per other consultants, the plan is to keep the patient at least today in the hospital, continue IV antibiotics when he goes home. Give him antibiotics for 5 days p.o. Probably they are not going to be doing percutaneous drainage of the gallbladder fossa as it looks like the patient is asymptomatic now. Dictated By: MIKE TORIBIO/JACOB Conf#: [id number] DID#: [id number] MTDD
[2016-11-14 19:20] VITALS: BP 143/74; RESP 18
[2016-11-15] MEDS: PIPER-TAZO 3.375 GM IV (PMX) 100 ML IVPB SCH ×5 (00:34→23:31)
[2016-11-15] MEDS: ACCU-CHEK XX SCH ×4 (02:00→20:38)
[2016-11-15 06:03] LABS: ADD SCAN DIFF NO
[2016-11-15 06:07] LABS: BASOPHILS % 0.3 % (0.0-2.0); EOSINOPHILS # 0.1 10^3/ul (0.0-0.5); EOSINOPHILS % 0.7 % (0.0-7.0); HEMATOCRIT 31.6 % (42.0-52.0); HEMOGLOBIN 10.6 g/dl (14.0-18.0); LYMPHOCYTES # 1.8 10^3/ul (0.8-2.9); LYMPHOCYTES % 16.7 % (15.0-51.0); MEAN CORPUSCULAR HEMOGLOBIN 30.1 pg (29.0-33.0); MEAN CORPUSCULAR HGB CONC 33.5 g/dl (32.0-37.0); MEAN CORPUSCULAR VOLUME 89.8 fl (82.0-101.0); MEAN PLATELET VOLUME 10.3 fl (7.4-10.4); MONOCYTE # 0.7 10^3/ul (0.3-0.9); MONOCYTES % 6.2 % (0.0-11.0); NEUTROPHIL # 8.1 10^3/ul (1.6-7.5); NEUTROPHILS % 75.5 % (39.0-77.0); PLATELET COUNT 355 10^3/UL (140-415); RED BLOOD COUNT 3.52 10^6/ul (4.70-6.10); RED CELL DISTRIBUTION WIDTH 11.9 % (11.5-14.5); WHITE BLOOD COUNT 10.7 10^3/ul (4.8-10.8)
[2016-11-15 06:28] LABS: INR 1.12; PROTIME 14.4 Sec (12.2-14.2); PT RATIO 1.1
[2016-11-15 06:29] LABS: PARTIAL THROMBOPLASTIN TIME 34.5 Sec (25.0-35.0)
[2016-11-15 06:51] LABS: ALBUMIN 2.7 g/dl (3.3-4.9)
[2016-11-15 06:54] LABS: ALBUMIN/GLOBULIN RATIO 0.69; BILIRUBIN,INDIRECT 0.4 mg/dl (0-1.1); BILIRUBIN,TOTAL 0.4 mg/dl (0.2-1.3); CREATININE 0.63 mg/dl (0.61-1.24); TOTAL PROTEIN 6.6 g/dl (6.1-8.1)
[2016-11-15 06:55] LABS: CALCIUM 7.7 mg/dl (8.4-10.2); MAGNESIUM 1.3 mg/dl (1.7-2.5); PHOSPHORUS 3.6 mg/dl (2.5-4.9)
[2016-11-15 08:13] VITALS: BP 139/73; RESP 18
[2016-11-15] MEDS: metFORMIN 500 MG TAB PO SCH ×2 (08:36→17:35)
[2016-11-15] MEDS: FAMOTIDINE 20 MG INJ IV SCH (08:36)
[2016-11-15] MEDS: LINAGLIPTIN 5 MG TABLET PO SCH (08:36)
[2016-11-15] MEDS: INSULIN GLARGINE [LANtus] 3 ML PEN SC SCH (08:49)
--- NOTE | 2016-11-15 08:58 | PN ---
Date/Time of Note Date/Time of Note DATE: 11/15/16 TIME: 08:56 Assessment/Plan VTE Prophylaxis VTE Prophylaxis Intervention: SCD's Lines/Catheters IV [facility] Saline Lock Assessment/Plan Chief Complaint/Hosp Course s/p lap familia with cystic duct leak s/p ERCP with stent Problems: Assessment/Plan currently doing well tolerating diet no nause no vomiting ok to d/c from surgical standpoint Subjective 24 Hr Interval Summary Free Text/Dictation patient underwent ERCP and stent for cystic duct leak. doing well, tolerating diet Exam/Review of Systems Vital Signs Vitals Vital Signs Date Time Temp Pulse Resp B/P Pulse Ox O2 Delivery O2 Flow Rate FiO2 11/15/16 08:13 98.7 87 18 139/73 98 11/13/16 17:58 Room Air 11/13/16 17:17 8.0 Intake and Output 11/14/16 11/14/16 11/15/16 15:00 23:00 07:00 Intake Total 100 ml 1380 ml 880 ml Output Total 4 ml Balance 100 ml 1376 ml 880 ml Exam small open noninfected periumbilical port wound Results Result Diagram: 11/15/16 0530 11/15/16 0505 Results 24 hrs Laboratory Tests Test 11/14/16 10:07 11/14/16 12:14 11/14/16 14:10 11/14/16 17:08 Bedside Glucose 290 H 243 H 230 H 172 Test 11/14/16 19:25 11/15/16 05:05 11/15/16 05:30 11/15/16 07:55 Bedside Glucose 210 61 L Prothrombin Time 14.4 H Prothrombin Time Ratio 1.1 INR International Normalized Ratio 1.12 Activated Partial Thromboplast Time 34.5 Sodium Level 139 Potassium Level 3.0 L Chloride Level 102 Carbon Dioxide Level 28 Anion Gap 12 Blood Urea Nitrogen 17 Creatinine 0.63 Glucose Level 52 #L Lactic Acid Level 1.2 Calcium Level 7.7 L Phosphorus Level 3.6 Magnesium Level 1.3 L Total Bilirubin 0.4 Direct Bilirubin 0.00 Indirect Bilirubin 0.4 Aspartate Amino Transf (AST/SGOT) 40 Alanine Aminotransferase (ALT/SGPT) 39 Alkaline Phosphatase 127 H B-Type Natriuretic Peptide 426 H Total Protein 6.6 Albumin 2.7 L Globulin 3.90 H Albumin/Globulin Ratio 0.69 White Blood Count 10.7 Red Blood Count 3.52 L Hemoglobin 10.6 L Hematocrit 31.6 L Mean Corpuscular Volume 89.8 Mean Corpuscular Hemoglobin 30.1 Mean Corpuscular Hemoglobin Concent 33.5 Red Cell Distribution Width 11.9 Platelet Count 355 # Mean Platelet Volume 10.3 Neutrophils % 75.5 Lymphocytes % 16.7 Monocytes % 6.2 Eosinophils % 0.7 Basophils % 0.3 Nucleated Red Blood Cells % 0.0 Neutrophils # 8.1 H Lymphocytes # 1.8 Monocytes # 0.7 Eosinophils # 0.1 Basophils # 0.0 Nucleated Red Blood Cells # 0.0 Test 11/15/16 08:23 Bedside Glucose 80 Medications Medications Current Medications Ondansetron HCl (Zofran Inj) 4 mg Q6H PRN IV NAUSEA AND/OR VOMITING; Start at 08:30 Acetaminophen (Tylenol Supp) 650 mg Q6H PRN [place] PAIN LEVEL 1-3 OR FEVER; Start 11/12/16 at 08:30 Morphine Sulfate (morphine) 3 mg Q4H PRN IV SEVERE PAIN LEVEL 7-10 Last administered on 11/13/16 12:40; Admin Dose 3 MG; Start 11/12/16 at 08:30 Famotidine (Pepcid Iv) 20 mg Q12 IV Last administered on 11/15/16 08:36; Admin Dose 20 MG; Start 11/12/16 at 09:00 Miscellaneous Information 1 ea NOTE XX ; Start 11/12/16 at 09:00 Glucose (Glutose) 15 gm Q15M PRN PO DECREASED GLUCOSE; Start 11/12/16 at 09:00 Glucose (Glutose) 22.5 gm Q15M PRN PO DECREASED GLUCOSE; Start 11/12/16 at 09: 00 Dextrose (D50w Syringe) 25 ml Q15M PRN IV DECREASED GLUCOSE; Start 11/12/16 at 09:00 Dextrose (D50w Syringe) 50 ml Q15M PRN IV DECREASED GLUCOSE; Start 11/12/16 at 09:00 Glucagon (Glucagen) 1 mg Q15M PRN IM DECREASED GLUCOSE; Start 11/12/16 at 09:00 Glucose 15 gm 15 gm Q15M PRN BUCCAL DECREASED GLUCOSE; Start 11/12/16 at 09:00 Piperacillin Sod/ Tazobactam Sod (Zosyn 3.375gm/ 100 ml (Pmx)) 100 ml @ 200 mls /hr Q6 IVPB Last administered on 11/15/16 06:26; Admin Dose 200 MLS/HR; Start 11/12/16 at 18:00 Diagnostic Test (Pha) (Accu-Chek) 1 ea 02 XX ; Start 11/13/16 at 02:00 Linagliptin (Tradjenta) 5 mg DAILY PO Last administered on 11/15/16 08:36; Admin Dose 5 MG; Start 11/14/16 at 11:30 Insulin Glargine (Lantus) 28 unit DAILY@09 SC Last administered on 11/15/16 08: 49; Admin Dose 28 UNIT; Start 11/15/16 at 09:00 Roderick BEAL Nov 15, 2016 08:58
[2016-11-15] MEDS ORDERED: INSULIN GLARGINE [LANtus] 3 ML PEN SC SCH (09:00)
--- NOTE | 2016-11-15 11:33 | PN ---
Date/Time of Note Date/Time of Note DATE: 11/15/16 TIME: 11:28 Assessment/Plan VTE Prophylaxis VTE Prophylaxis Intervention: heparin Lines/Catheters IV Catheter Type (from Nrsg): Saline Lock Assessment/Plan Assessment/Plan 1. Postop abdominal pain. Patient status post cholecystectomy with possible biliary leak. s/p ERCP with stent. improving. pt had a Hypoglycemia down to 64, s/p Endocrine, changed insulin, lantus to 28 units and Meal time to 8 units with meals 2. Diabetes. 3. Essential hypertension. 4. Leukocytosis likely secondary to #1. improved 5. Morbid obesity. Weight reduction was advised Disposition and plan: pain control, plan for d/c home on tuesday Subjective 24 Hr Interval Summary Free Text/Dictation pt had a Hypoglycemia down to 64, s/p Endocrine, changed insulin, lantus to 28 units and Meal time to 8 units with meals BP stable Exam/Review of Systems Vital Signs Vitals Vital Signs Date Time Temp Pulse Resp B/P Pulse Ox O2 Delivery O2 Flow Rate FiO2 11/15/16 08:13 98.7 87 18 139/73 98 11/13/16 17:58 Room Air 11/13/16 17:17 8.0 Intake and Output 11/14/16 11/14/16 11/15/16 15:00 23:00 07:00 Intake Total 100 ml 1380 ml 880 ml Output Total 4 ml Balance 100 ml 1376 ml 880 ml Exam General: Still with reported abdominal pain. Only minimal stress Eyes: Equal round reactive to light Neck: Supple nontender, no JVD Cardiac: Regular rate Pulmonary: No adventitious lungs GI: Tender upon palpation right upper abdominal quadrant Extremities: No edema bilateral Skin: CDI Neurologic: AL O 4 Results Result Diagram: 11/15/16 0530 11/15/16 0505 Results 24 hrs Laboratory Tests Test 11/14/16 12:14 11/14/16 14:10 11/14/16 17:08 11/14/16 19:25 Bedside Glucose 243 H 230 H 172 210 Test 11/15/16 05:05 11/15/16 05:30 11/15/16 07:55 11/15/16 08:23 Prothrombin Time 14.4 H Prothrombin Time Ratio 1.1 INR International Normalized Ratio 1.12 Activated Partial Thromboplast Time 34.5 Sodium Level 139 Potassium Level 3.0 L Chloride Level 102 Carbon Dioxide Level 28 Anion Gap 12 Blood Urea Nitrogen 17 Creatinine 0.63 Glucose Level 52 #L Lactic Acid Level 1.2 Calcium Level 7.7 L Phosphorus Level 3.6 Magnesium Level 1.3 L Total Bilirubin 0.4 Direct Bilirubin 0.00 Indirect Bilirubin 0.4 Aspartate Amino Transf (AST/SGOT) 40 Alanine Aminotransferase (ALT/SGPT) 39 Alkaline Phosphatase 127 H B-Type Natriuretic Peptide 426 H Total Protein 6.6 Albumin 2.7 L Globulin 3.90 H Albumin/Globulin Ratio 0.69 White Blood Count 10.7 Red Blood Count 3.52 L Hemoglobin 10.6 L Hematocrit 31.6 L Mean Corpuscular Volume 89.8 Mean Corpuscular Hemoglobin 30.1 Mean Corpuscular Hemoglobin Concent 33.5 Red Cell Distribution Width 11.9 Platelet Count 355 # Mean Platelet Volume 10.3 Neutrophils % 75.5 Lymphocytes % 16.7 Monocytes % 6.2 Eosinophils % 0.7 Basophils % 0.3 Nucleated Red Blood Cells % 0.0 Neutrophils # 8.1 H Lymphocytes # 1.8 Monocytes # 0.7 Eosinophils # 0.1 Basophils # 0.0 Nucleated Red Blood Cells # 0.0 Bedside Glucose 61 L 80 Test 11/15/16 09:52 Bedside Glucose 178 Medications Medications Current Medications Ondansetron HCl (Zofran Inj) 4 mg Q6H PRN IV NAUSEA AND/OR VOMITING; Start at 08:30 Acetaminophen (Tylenol Supp) 650 mg Q6H PRN [place] PAIN LEVEL 1-3 OR FEVER; Start 11/12/16 at 08:30 Morphine Sulfate (morphine) 3 mg Q4H PRN IV SEVERE PAIN LEVEL 7-10 Last administered on 11/13/16 12:40; Admin Dose 3 MG; Start 11/12/16 at 08:30 Famotidine (Pepcid Iv) 20 mg Q12 IV Last administered on 11/15/16 08:36; Admin Dose 20 MG; Start 11/12/16 at 09:00 Miscellaneous Information 1 ea NOTE XX ; Start 11/12/16 at 09:00 Glucose (Glutose) 15 gm Q15M PRN PO DECREASED GLUCOSE; Start 11/12/16 at 09:00 Glucose (Glutose) 22.5 gm Q15M PRN PO DECREASED GLUCOSE; Start 11/12/16 at 09: 00 Dextrose (D50w Syringe) 25 ml Q15M PRN IV DECREASED GLUCOSE; Start 11/12/16 at 09:00 Dextrose (D50w Syringe) 50 ml Q15M PRN IV DECREASED GLUCOSE; Start 11/12/16 at 09:00 Glucagon (Glucagen) 1 mg Q15M PRN IM DECREASED GLUCOSE; Start 11/12/16 at 09:00 Glucose 15 gm 15 gm Q15M PRN BUCCAL DECREASED GLUCOSE; Start 11/12/16 at 09:00 Piperacillin Sod/ Tazobactam Sod (Zosyn 3.375gm/ 100 ml (Pmx)) 100 ml @ 200 mls /hr Q6 IVPB Last administered on 11/15/16 06:26; Admin Dose 200 MLS/HR; Start 11/12/16 at 18:00 Diagnostic Test (Pha) (Accu-Chek) 1 ea 02 XX ; Start 11/13/16 at 02:00 Linagliptin (Tradjenta) 5 mg DAILY PO Last administered on 11/15/16 08:36; Admin Dose 5 MG; Start 11/14/16 at 11:30 Insulin Glargine (Lantus) 28 unit DAILY@09 SC Last administered on 11/15/16 08: 49; Admin Dose 28 UNIT; Start 11/15/16 at 09:00 SHAD WISEMAN MD Nov 15, 2016 11:33
[2016-11-15] MEDS: INSULIN ASPART [NOVOLOG] 3 ML PEN SC SCH ×2 (12:13→17:42)
[2016-11-15] MEDS ORDERED: POTASSIUM CHLORIDE 20 MEQ in SOD CHLORIDE 0.9% 100 ML IVPB ONE (12:30)
--- NOTE | 2016-11-15 13:23 | CONS ---
Date/Time of Note Date/Time of Note DATE: 11/15/16 TIME: 13:22 Assessment/Plan Assessment/Plan Problems: (1) Diabetes mellitus type 2 in obese Status: Chronic Comment: He is actually on less medicine now than he was has an outpatient when he had poor sugar control. In spite of this he did actually manage to have a hypoglycemic reaction mildly this morning. We will make further adjustments to his regimen. I believe the treatment of the active inflammatory issues with the gallbladder is the reason that his needs for insulin are decreasing. (2) Bile leak, postoperative Status: Acute Comment: This is improved nicely with the placement of the ERCP guided stent. Ultimately this will need to be dealt with more definitively and a further surgical procedure some months in the future. For now he should still be treated for infection I will defer off on this to the primary team. (3) Status post laparoscopic cholecystectomy Onset Date: ~ 11/05/2016 Status: Acute Comment: This procedure will need to be fine-tuned in the future Consultation Date/Type/Reason Admit Date/Time Nov 12, 2016 at 03:46 Initial Consult Date 11/12/16 Type of Consultation: Endocrinology Reason for Consultation Diabetes mellitus type 2; morbid obesity; biliary leak status post cholecystectomy Referring Provider: JOSELIN HOROWITZ MD 24 HR Interval Summary Constitutional: improved Exam/Review of Systems Vital Signs Vitals Vital Signs Date Time Temp Pulse Resp B/P Pulse Ox O2 Delivery O2 Flow Rate FiO2 11/15/16 08:13 98.7 87 18 139/73 98 11/13/16 17:58 Room Air 11/13/16 17:17 8.0 Intake and Output 11/14/16 11/14/16 11/15/16 15:00 23:00 07:00 Intake Total 100 ml 1380 ml 880 ml Output Total 4 ml Balance 100 ml 1376 ml 880 ml Exam Constitutional: alert, oriented Respiratory: clear to auscultation, normal air movement Cardiovascular: nl pulses, regular rate and rhythm Gastrointestinal: nl liver, spleen, soft Results Result Diagram: 11/15/16 0530 11/15/16 0505 Results 24 hrs Laboratory Tests Test 11/14/16 14:10 11/14/16 17:08 11/14/16 19:25 11/15/16 05:05 Bedside Glucose 230 H 172 210 Prothrombin Time 14.4 H Prothrombin Time Ratio 1.1 INR International Normalized Ratio 1.12 Activated Partial Thromboplast Time 34.5 Sodium Level 139 Potassium Level 3.0 L Chloride Level 102 Carbon Dioxide Level 28 Anion Gap 12 Blood Urea Nitrogen 17 Creatinine 0.63 Glucose Level 52 #L Lactic Acid Level 1.2 Calcium Level 7.7 L Phosphorus Level 3.6 Magnesium Level 1.3 L Total Bilirubin 0.4 Direct Bilirubin 0.00 Indirect Bilirubin 0.4 Aspartate Amino Transf (AST/SGOT) 40 Alanine Aminotransferase (ALT/SGPT) 39 Alkaline Phosphatase 127 H B-Type Natriuretic Peptide 426 H Total Protein 6.6 Albumin 2.7 L Globulin 3.90 H Albumin/Globulin Ratio 0.69 Test 11/15/16 05:30 11/15/16 07:55 11/15/16 08:23 11/15/16 09:52 White Blood Count 10.7 Red Blood Count 3.52 L Hemoglobin 10.6 L Hematocrit 31.6 L Mean Corpuscular Volume 89.8 Mean Corpuscular Hemoglobin 30.1 Mean Corpuscular Hemoglobin Concent 33.5 Red Cell Distribution Width 11.9 Platelet Count 355 # Mean Platelet Volume 10.3 Neutrophils % 75.5 Lymphocytes % 16.7 Monocytes % 6.2 Eosinophils % 0.7 Basophils % 0.3 Nucleated Red Blood Cells % 0.0 Neutrophils # 8.1 H Lymphocytes # 1.8 Monocytes # 0.7 Eosinophils # 0.1 Basophils # 0.0 Nucleated Red Blood Cells # 0.0 Bedside Glucose 61 L 80 178 Test 11/15/16 11:59 Bedside Glucose 190 Medications Medications Current Medications Ondansetron HCl (Zofran Inj) 4 mg Q6H PRN IV NAUSEA AND/OR VOMITING; Start at 08:30 Acetaminophen (Tylenol Supp) 650 mg Q6H PRN [place] PAIN LEVEL 1-3 OR FEVER; Start 11/12/16 at 08:30 Morphine Sulfate (morphine) 3 mg Q4H PRN IV SEVERE PAIN LEVEL 7-10 Last administered on 11/13/16 12:40; Admin Dose 3 MG; Start 11/12/16 at 08:30 Famotidine (Pepcid Iv) 20 mg Q12 IV Last administered on 11/15/16 08:36; Admin Dose 20 MG; Start 11/12/16 at 09:00 Miscellaneous Information 1 ea NOTE XX ; Start 11/12/16 at 09:00 Glucose (Glutose) 15 gm Q15M PRN PO DECREASED GLUCOSE; Start 11/12/16 at 09:00 Glucose (Glutose) 22.5 gm Q15M PRN PO DECREASED GLUCOSE; Start 11/12/16 at 09: 00 Dextrose (D50w Syringe) 25 ml Q15M PRN IV DECREASED GLUCOSE; Start 11/12/16 at 09:00 Dextrose (D50w Syringe) 50 ml Q15M PRN IV DECREASED GLUCOSE; Start 11/12/16 at 09:00 Glucagon (Glucagen) 1 mg Q15M PRN IM DECREASED GLUCOSE; Start 11/12/16 at 09:00 Glucose 15 gm 15 gm Q15M PRN BUCCAL DECREASED GLUCOSE; Start 11/12/16 at 09:00 Piperacillin Sod/ Tazobactam Sod (Zosyn 3.375gm/ 100 ml (Pmx)) 100 ml @ 200 mls /hr Q6 IVPB Last administered on 11/15/16 11:59; Admin Dose 200 MLS/HR; Start 11/12/16 at 18:00 Diagnostic Test (Pha) (Accu-Chek) ea 02 XX ; Start 11/13/16 at 02:00 Linagliptin (Tradjenta) 5 mg DAILY PO Last administered on 11/15/16 08:36; Admin Dose 5 MG; Start 11/14/16 at 11:30 Insulin Glargine 28 unit 28 unit DAILY@09 SC Last administered on 11/15/16 08: 49; Admin Dose 28 UNIT; Start 11/15/16 at 09:00 Potassium Chloride/Sodium Chloride (KCl/NS) 110 ml @ 55 mls/hr ONCE ONCE IVPB ; Start 11/15/16 at 12:30; Stop 11/15/16 at 14:29 PREMA HARDWICK MD Nov 15, 2016 13:23
[2016-11-15 14:13] VITALS: BP 118/67; RESP 22
[2016-11-15] MEDS: POTASSIUM CHLORIDE (SR) 20 MEQ TAB PO SCH ×2 (17:35→20:37)
[2016-11-15 19:16] VITALS: BP 155/71; RESP 16
[2016-11-15] MEDS: FAMOTIDINE 20 MG TAB PO SCH (20:37)
--- NOTE | 2016-11-15 22:29 | PN ---
Date/Time of Note Date/Time of Note DATE: 11/15/16 TIME: 22:21 Assessment/Plan Lines/Catheters IV Catheter Type (from Nrsg): Saline Lock [place] in Place (from Nrs): No Assessment/Plan Assessment/Plan [facility] Progress Note Date of Service: 11/15/16 Today's Impression & Plan: Overall stable and appears significantly improved. Leak seems to be controlled. No further need currently for perc drain and patient can likely d/c home today or tomorrow. With above assessment, I've recommended the following for today: 1. Cont current management 2. Convert antimicrobials to perhaps a 5 day course as an outpatient 3. Saline lock IV 4. Advance diet 5. Increase activity 6. Wound care consult with TID wet to moist dressing change 7. D/c planning Thank you again for your great care of this very pleasant patient and wonderful family. If there are any questions, please feel free to call me at [phone]. TOTAL VISIT TIME: 20 minutes of which more than half was spent at bedside in the OR as well as coordination of care between multiple physicians and providers. Disclaimer: Inadvertent spelling or grammatical errors are likely due to EHR/ dictation software use and do not reflect on the overall quality of patient care. UPDATED CLINICAL SUMMARY: The patient is a very pleasant 56-year-old gentleman with multiple comorbid issues, including a BMI of 42.2, as well as diabetes mellitus and hypertension, who underwent a laparoscopic cholecystectomy for symptomatic cholelithiasis on 11/05/2016. He was readmitted to the hospital on 11/12/2016 at [facility] with abdominal pain with associated nausea. S/p ERCP 11/13/16 with stent placement in CBD. COMORBIDITIES: 1. BMI of 42.2. 2. Hypertension. 3. Diabetes mellitus type 2. 4. History of known cholelithiasis since July of 2006, or perhaps earlier. 5. History of incarcerated ventral hernia repair, status post repair 08/18/2006 , followed by reoperation on 10/03/[address] Akhtar. 6. Status post phimosis repair 03/21/2009. 7. History of right leg cellulitis, requiring inpatient and outpatient treatment with PICC line placement, and recurrence of leg cellulitis of 2014. Issues with diabetic foot ulcers for a number of years. 8. History of flat colon polyp removed from cecum 07/06/2016, showing evidence for adenocarcinoma, moderately differentiated, and a small focus of residual tubular adenoma present. 9. History of tubular adenoma with resection from sigmoid colon, as well as the rectum. 10. Status post repeat colonoscopy on 09/13/2016, with no further visualization of any abnormalities. 11. S/p laparoscopic cholecystectomy for symptomatic cholelithiasis on [address] García 12. S/p ERCP with CBD stenting by Dr. Philip 11/13/16 (bile leak found at staple line, but appeared to be contained within GB fossa) Subjective: No major events or complaints; no major abd pain and under control with medications; no n/v/d; no sob or cp; + flatus; + BM; + activity; infraumbilical wound opened after staple removal Objective: Vitals: See below Exam: GENERAL: On exam, the patient was sitting in a chair and appeared to be comfortable and in no acute distress. ABDOMEN: Soft, nontender and nondistended. Incisions are clean, dry and intact without any evidence of erythema, edema, discharge, or hernia. Infraumbilical wound with open skin edges, but clean base. There are no peritoneal signs or guarding. SKIN: Skin appears to be pink and feels warm to touch. NEUROLOGIC: Patient is awake, alert, and follows commands appropriately. Exam/Review of Systems Vital Signs Vitals Vital Signs Date Time Temp Pulse Resp B/P Pulse Ox O2 Delivery O2 Flow Rate FiO2 11/15/16 19:16 98.7 79 16 155/71 97 11/13/16 17:58 Room Air 11/13/16 17:17 8.0 Intake and Output 11/14/16 11/14/16 11/15/16 15:00 23:00 07:00 Intake Total 100 ml 1380 ml 880 ml Output Total 4 ml Balance 100 ml 1376 ml 880 ml Results Result Diagram: 11/15/16 0530 11/15/16 0505 LUCY KING M.D. Nov 15, 2016 22:29
[2016-11-16] MEDS: ACCU-CHEK XX SCH ×4 (02:27→19:50)
[2016-11-16] MEDS: PIPER-TAZO 3.375 GM IV (PMX) 100 ML IVPB SCH ×3 (06:19→17:50)
[2016-11-16 06:40] LABS: POTASSIUM 3.7 mmol/L (3.5-5.1)
[2016-11-16 06:43] LABS: CREATININE 0.64 mg/dl (0.61-1.24)
[2016-11-16 06:44] LABS: CALCIUM 8.4 mg/dl (8.4-10.2)
[2016-11-16 07:35] VITALS: BP 143/87; RESP 19
--- NOTE | 2016-11-16 08:11 | PN ---
Date/Time of Note Date/Time of Note DATE: 11/16/16 TIME: 08:06 Assessment/Plan Lines/Catheters IV Catheter Type (from Nrsg): Saline Lock Agu[place] in Place (from Nrsg): No Assessment/Plan Assessment/Plan [facility] Progress Note Date of Service: 11/16/16 Today's Impression & Plan: Overall stable and appears significantly improved. Ok with d/c home today. With above assessment, I've recommended the following for today: 1. D/c home 2. Keep in touch with my office and Dr. García's and Dr. Philip's 3. Tentative plan to d/c CBD drain in 2-3 months 4. Consideration for reoperation pending clinical course 5. Dressing change of infraumbilical wound Thank you again for your great care of this very pleasant patient and wonderful family. If there are any questions, please feel free to call me at [phone]. TOTAL VISIT TIME: 20 minutes of which more than half was spent at bedside in the OR as well as coordination of care between multiple physicians and providers. Disclaimer: Inadvertent spelling or grammatical errors are likely due to EHR/ dictation software use and do not reflect on the overall quality of patient care. UPDATED CLINICAL SUMMARY: The patient is a very pleasant 56-year-old gentleman with multiple comorbid issues, including a BMI of 42.2, as well as diabetes mellitus and hypertension, who underwent a laparoscopic cholecystectomy for symptomatic cholelithiasis on 11/05/2016. He was readmitted to the hospital on 11/12/2016 at [facility] with abdominal pain with associated nausea. S/p ERCP 11/13/16 with stent placement in CBD. [place] d/c'd 11/14/16 and infraumbilical wound skin came apart. COMORBIDITIES: 1. BMI of 42.2. 2. Hypertension. 3. Diabetes mellitus type 2. 4. History of known cholelithiasis since July of 2006, or perhaps earlier. 5. History of incarcerated ventral hernia repair, status post repair 08/18/2006 , followed by reoperation on 10/03/[address] Akhtar. 6. Status post phimosis repair 03/21/2009. 7. History of right leg cellulitis, requiring inpatient and outpatient treatment with PICC line placement, and recurrence of leg cellulitis of 2014. Issues with diabetic foot ulcers for a number of years. 8. History of flat colon polyp removed from cecum 07/06/2016, showing evidence for adenocarcinoma, moderately differentiated, and a small focus of residual tubular adenoma present. 9. History of tubular adenoma with resection from sigmoid colon, as well as the rectum. 10. Status post repeat colonoscopy on 09/13/2016, with no further visualization of any abnormalities. 11. S/p laparoscopic cholecystectomy for symptomatic cholelithiasis on [address] García 12. S/p ERCP with CBD stenting by Dr. Philip 11/13/16 (bile leak found at staple line, but appeared to be contained within GB fossa) Subjective: No major events or complaints; no major abd pain and under control with medications; no n/v/d; no sob or cp; + flatus; + BM; + activity; infraumbilical wound dressing intact Objective: Vitals: See below Exam: GENERAL: On exam, the patient was sitting in his bed and appeared to be comfortable and in no acute distress. ABDOMEN: Soft, nontender and nondistended. Incisions are clean, dry and intact without any evidence of erythema, edema, discharge, or hernia. Infraumbilical wound dressing intact. There are no peritoneal signs or guarding. SKIN: Skin appears to be pink and feels warm to touch. NEUROLOGIC: Patient is awake, alert, and follows commands appropriately. Exam/Review of Systems Vital Signs Vitals Vital Signs Date Time Temp Pulse Resp B/P Pulse Ox O2 Delivery O2 Flow Rate FiO2 11/16/16 07:35 98.2 74 19 143/87 97 11/13/16 17:58 Room Air 11/13/16 17:17 8.0 Intake and Output 11/15/16 11/15/16 11/16/16 15:00 23:00 07:00 Intake Total 1630 ml 1580 ml Balance 1630 ml 1580 ml Results Result Diagram: 11/15/16 0530 11/16/16 0536 LUCY KING M.D. Nov 16, 2016 08:11
[2016-11-16] MEDS: LINAGLIPTIN 5 MG TABLET PO SCH (08:34)
[2016-11-16] MEDS: FAMOTIDINE 20 MG TAB PO SCH ×2 (08:35→20:49)
[2016-11-16] MEDS: metFORMIN 500 MG TAB PO SCH ×2 (08:35→17:51)
[2016-11-16] MEDS: INSULIN GLARGINE [LANtus] 3 ML PEN SC SCH (08:38)
[2016-11-16] MEDS: INSULIN ASPART [NOVOLOG] 3 ML PEN SC SCH ×3 (08:42→17:57)
--- NOTE | 2016-11-16 11:31 | PN ---
Date/Time of Note Date/Time of Note DATE: 11/16/16 TIME: 11:28 Assessment/Plan VTE Prophylaxis VTE Prophylaxis Intervention: SCD's Lines/Catheters IV Catheter Type (from Nrs): Saline Lock Urinary Cath still in place: No Assessment/Plan Assessment/Plan 1. Postop abdominal pain. Patient status post cholecystectomy with possible biliary leak. s/p ERCP with stent. improving. pt had a Hypoglycemia down to 68 s /p Endocrine, changed insulin, lantus to 28 units and Meal time to 8 units with meals 2. Diabetes. 3. Essential hypertension. 4. Leukocytosis likely secondary to #1. improved 5. Morbid obesity. Weight reduction was advised Disposition and plan: pain control, Blood sugar again dropped to 68 today - Endocrine has been following on the patient - will inform him about chage in insulin Subjective 24 Hr Interval Summary Free Text/Dictation pt blood sugar again dropped to 68, other pinto no acute events, he is stable Exam/Review of Systems Vital Signs Vitals Vital Signs Date Time Temp Pulse Resp B/P Pulse Ox O2 Delivery O2 Flow Rate FiO2 11/16/16 07:35 98.2 74 19 143/87 97 11/13/16 17:58 Room Air 11/13/16 17:17 8.0 Intake and Output 11/15/16 11/15/16 11/16/16 15:00 23:00 07:00 Intake Total 1630 ml 1580 ml Balance 1630 ml 1580 ml Exam General: Still with reported abdominal pain. Only minimal stress Eyes: Equal round reactive to light Neck: Supple nontender, no JVD Cardiac: Regular rate Pulmonary: No adventitious lungs GI: Tender upon palpation right upper abdominal quadrant Extremities: No edema bilateral Skin: CDI Neurologic: AL O 4 Results Result Diagram: 11/15/16 0530 11/16/16 0536 Results 24 hrs Laboratory Tests Test 11/15/16 11:59 11/15/16 13:34 11/15/16 17:15 11/15/16 20:36 Bedside Glucose 190 185 178 230 H Test 11/16/16 02:21 11/16/16 05:36 11/16/16 07:56 11/16/16 08:34 Bedside Glucose 88 68 L 101 Sodium Level 141 Potassium Level 3.7 Chloride Level 103 Carbon Dioxide Level 28 Anion Gap 14 Blood Urea Nitrogen 11 Creatinine 0.64 Glucose Level 58 L Calcium Level 8.4 Test 11/16/16 10:11 Bedside Glucose 206 Medications Medications Current Medications Ondansetron HCl (Zofran Inj) 4 mg Q6H PRN IV NAUSEA AND/OR VOMITING; Start at 08:30 Acetaminophen (Tylenol Supp) [address] PAIN LEVEL 1-3 OR FEVER; Start 11/12/16 at 08:30 Morphine Sulfate (morphine) 3 mg Q4H PRN IV SEVERE PAIN LEVEL 7-10 Last administered on 11/13/16 12:40; Admin Dose 3 MG; Start 11/12/16 at 08:30 Miscellaneous Information 1 ea NOTE XX ; Start 11/12/16 at 09:00 Glucose (Glutose) 15 gm Q15M PRN PO DECREASED GLUCOSE; Start 11/12/16 at 09:00 Glucose (Glutose) 22.5 gm Q15M PRN PO DECREASED GLUCOSE; Start 11/12/16 at 09: 00 Dextrose (D50w Syringe) 25 ml Q15M PRN IV DECREASED GLUCOSE; Start 11/12/16 at 09:00 Dextrose (D50w Syringe) 50 ml Q15M PRN IV DECREASED GLUCOSE; Start 11/12/16 at 09:00 Glucagon (Glucagen) 1 mg Q15M PRN IM DECREASED GLUCOSE; Start 11/12/16 at 09:00 Glucose 15 gm 15 gm Q15M PRN BUCCAL DECREASED GLUCOSE; Start 11/12/16 at 09:00 Piperacillin Sod/ Tazobactam Sod (Zosyn 3.375gm/ 100 ml (Pmx)) 100 ml @ 200 mls /hr Q6 IVPB Last administered on 11/16/16 06:19; Admin Dose 200 MLS/HR; Start 11/12/16 at 18:00 Diagnostic Test (Pha) (Accu-Chek) 1 ea 02 XX Last administered on 11/16/16 02: 27; Admin Dose 1 EA; Start 11/13/16 at 02:00 Linagliptin (Tradjenta) 5 mg DAILY PO Last administered on 11/16/16 08:34; Admin Dose 5 MG; Start 11/14/16 at 11:30 Insulin Glargine (Lantus) 28 unit DAILY@09 SC Last administered on 11/16/16 08: 38; Admin Dose 28 UNIT; Start 11/15/16 at 09:00 Famotidine (Pepcid) 20 mg Q12 PO Last administered on 11/16/16t 08:35; Admin Dose 20 MG; Start 11/15/16 at 21:00 SHAD WISEMAN MD Nov 16, 2016 11:31
--- NOTE | 2016-11-16 17:29 | PN ---
Date/Time of Note Date/Time of Note DATE: 11/16/16 TIME: 17:27 Assessment/Plan VTE Prophylaxis VTE Prophylaxis Intervention: SCD's Lines/Catheters IV Catheter Type (from Nrs): Saline Lock Urinary Cath still in place: No Assessment/Plan Chief Complaint/Hosp Course s/p lap familia with cystic duct leak s/p ERCP with stent Problems: Assessment/Plan doing well but some blood sugar issues most likely due to acute inflammation and fluid collection once bld sugar is optimized ok to dc home with f/u Subjective 24 Hr Interval Summary Free Text/Dictation tolerating diet no abdominal pain, s/p ERCP with stent placement. minimal subhepatic fluid collection treated on abx Exam/Review of Systems Vital Signs Vitals Vital Signs Date Time Temp Pulse Resp B/P Pulse Ox O2 Delivery O2 Flow Rate FiO2 11/16/16 07:35 98.2 74 19 143/87 97 11/13/16 17:58 Room Air 11/13/16 17:17 8.0 Intake and Output 11/15/16 11/15/16 11/16/16 15:00 23:00 07:00 Intake Total 1630 ml 1580 ml Balance 1630 ml 1580 ml Exam abd soft nontender, small wound opening Results Result Diagram: 11/15/16 0530 11/16/16 0536 Results 24 hrs Laboratory Tests Test 11/15/16 20:36 11/16/16 02:21 11/16/16 05:36 11/16/16 07:56 Bedside Glucose 230 H 88 68 L Sodium Level 141 Potassium Level 3.7 Chloride Level 103 Carbon Dioxide Level 28 Anion Gap 14 Blood Urea Nitrogen 11 Creatinine 0.64 Glucose Level 58 L Calcium Level 8.4 Test 11/16/16 08:34 11/16/16 10:11 11/16/16 11:40 11/16/16 14:11 Bedside Glucose 101 206 213 173 Medications Medications Current Medications Ondansetron HCl (Zofran Inj) 4 mg Q6H PRN IV NAUSEA AND/OR VOMITING; Start at 08:30 Acetaminophen (Tylenol Supp) 650 mg Q6H PRN [place] PAIN LEVEL 1-3 OR FEVER; Start 11/12/16 at 08:30 Morphine Sulfate (morphine) 3 mg Q4H PRN IV SEVERE PAIN LEVEL 7-10 Last administered on 11/13/16t 12:40; Admin Dose 3 MG; Start 11/12/16 at 08:30 Miscellaneous Information 1 ea NOTE XX ; Start 11/12/16 at 09:00 Glucose (Glutose) 15 gm Q15M PRN PO DECREASED GLUCOSE; Start 11/12/16 at 09:00 Glucose (Glutose) 22.5 gm Q15M PRN PO DECREASED GLUCOSE; Start 11/12/16 at 09: 00 Dextrose (D50w Syringe) 25 ml Q15M PRN IV DECREASED GLUCOSE; Start 11/12/16 at 09:00 Dextrose (D50w Syringe) 50 ml Q15M PRN IV DECREASED GLUCOSE; Start 11/12/16 at 09:00 Glucagon (Glucagen) 1 mg Q15M PRN IM DECREASED GLUCOSE; Start 11/12/16 at 09:00 Glucose 15 gm 15 gm Q15M PRN BUCCAL DECREASED GLUCOSE; Start 11/12/16 at 09:00 Piperacillin Sod/ Tazobactam Sod (Zosyn 3.375gm/ 100 ml (Pmx)) 100 ml @ 200 mls /hr Q6 IVPB Last administered on 11/16/16 12:34; Admin Dose 200 MLS/HR; Start 11/12/16 at 18:00 Diagnostic Test (Pha) (Accu-Chek) 1 ea 02 XX Last administered on 11/16/16 02: 27; Admin Dose 1 EA; Start 11/13/16 at 02:00 Linagliptin (Tradjenta) 5 mg DAILY PO Last administered on 11/16/16 08:34; Admin Dose 5 MG; Start 11/14/16 at 11:30 Insulin Glargine (Lantus) 28 unit DAILY@09 SC Last administered on 11/16/16 08: 38; Admin Dose 28 UNIT; Start 11/15/16 at 09:00 Famotidine (Pepcid) 20 mg Q12 PO Last administered on 11/16/16 08:35; Admin Dose 20 MG; Start 11/15/16 at 21:00 Roderick BEAL Nov 16, 2016 17:29
--- NOTE | 2016-11-16 18:13 | CONS ---
Date/Time of Note Date/Time of Note DATE: 11/16/16 TIME: 18:10 Assessment/Plan Assessment/Plan Problems: (1) Diabetes mellitus type 2 in obese Status: Chronic Comment: Since placement of the stent and the IV antibiotic therapy his insulin needs have decreased rather significantly and he is on less than he was taking as an outpatient. He had a low sugar of 68 this morning which wall lower than average for him was not actually symptomatic. I have adjusted downward on his insulin from an endocrine standpoint he was cleared for discharge as of today. He was held by the team so they can arrange for antibiotic therapy ongoing. Continue to follow along and reassure to smooth out his sugars. Please note if he continues with weight loss his insulin needs will continue to decline we may billable look at using a purely oral based therapy or combination thereof. (2) Obesity (BMI 35.0-39.9 without comorbidity) Status: Chronic Comment: Counseled (3) Status post laparoscopic cholecystectomy Onset Date: ~ 11/05/2016 Status: Acute Comment: With a placement of the stent via ERCP he no longer has the bile leak through the remnant duct system. As per the dictation from hepatobiliary energy sales consultant he may need further surgery in a few months. (4) Bile leak, postoperative Status: Acute Comment: As above Consultation Date/Type/Reason Admit Date/Time Nov 12, 2016 at 03:46 Initial Consult Date 11/12/16 Type of Consultation: Endocrinology Referring Provider: JOSELIN HOROWITZ MD 24 HR Interval Summary Constitutional: no complaints Detailed Summary Respiratory: no complaints Cardiovascular: no complaints Gastrointestinal: no complaints Genitourinary: no complaints Endocrine: no complaints, other (Patient was without symptoms when her sugar was 68 this morning.) Exam/Review of Systems Vital Signs Vitals Vital Signs Date Time Temp Pulse Resp B/P Pulse Ox O2 Delivery O2 Flow Rate FiO2 11/16/16 07:35 98.2 74 19 143/87 97 11/13/16 17:58 Room Air 11/13/16 17:17 8.0 Intake and Output 11/15/16 11/15/16 11/16/16 15:00 23:00 07:00 Intake Total 1630 ml 1580 ml Balance 1630 ml 1580 ml Exam Constitutional: alert, oriented Respiratory: clear to auscultation, normal air movement Cardiovascular: nl pulses, regular rate and rhythm Gastrointestinal: nl liver, spleen, non-tender, soft Results Result Diagram: 11/15/16 0530 11/16/16 0536 Results 24 hrs Laboratory Tests Test 11/15/16 20:36 11/16/16 02:21 11/16/16 05:36 11/16/16 07:56 Bedside Glucose 230 H 88 68 L Sodium Level 141 Potassium Level 3.7 Chloride Level 103 Carbon Dioxide Level 28 Anion Gap 14 Blood Urea Nitrogen 11 Creatinine 0.64 Glucose Level 58 L Calcium Level 8.4 Test 11/16/16 08:34 11/16/16 10:11 11/16/16 11:40 11/16/16 14:11 Bedside Glucose 101 206 213 173 Test 11/16/16 17:34 Bedside Glucose 133 Medications Medications Current Medications Ondansetron HCl (Zofran Inj) 4 mg Q6H PRN IV NAUSEA AND/OR VOMITING; Start at 08:30 Acetaminophen (Tylenol Supp) 650 mg Q6H PRN [place] PAIN LEVEL 1-3 OR FEVER; Start 11/12/16 at 08:30 Morphine Sulfate (morphine) 3 mg Q4H PRN IV SEVERE PAIN LEVEL 7-10 Last administered on 11/13/16 12:40; Admin Dose 3 MG; Start 11/12/16 at 08:30 Miscellaneous Information 1 ea NOTE XX ; Start 11/12/16 at 09:00 Glucose (Glutose) 15 gm Q15M PRN PO DECREASED GLUCOSE; Start 11/12/16 at 09:00 Glucose (Glutose) 22.5 gm Q15M PRN PO DECREASED GLUCOSE; Start 11/12/16 at 09: 00 Dextrose (D50w Syringe) 25 ml Q15M PRN IV DECREASED GLUCOSE; Start 11/12/16 at 09:00 Dextrose (D50w Syringe) 50 ml Q15M PRN IV DECREASED GLUCOSE; Start 11/12/16 at 09:00 Glucagon (Glucagen) 1 mg Q15M PRN IM DECREASED GLUCOSE; Start 11/12/16 at 09:00 Glucose 15 gm 15 gm Q15M PRN BUCCAL DECREASED GLUCOSE; Start 11/12/16 at 09:00 Piperacillin Sod/ Tazobactam Sod (Zosyn 3.375gm/ 100 ml (Pmx)) 100 ml @ 200 mls /hr Q6 IVPB Last administered on 11/16/16 17:50; Admin Dose 200 MLS/HR; Start 11/12/16 at 18:00 Diagnostic Test (Pha) (Accu-Chek) 1 ea 02 XX Last administered on 11/16/16 02: 27; Admin Dose 1 EA; Start 11/13/16 at 02:00 Linagliptin (Tradjenta) 5 mg DAILY PO Last administered on 11/16/16 08:34; Admin Dose 5 MG; Start 11/14/16 at 11:30 Insulin Glargine (Lantus) 28 unit DAILY@09 SC Last administered on 11/16/16 08: 38; Admin Dose 28 UNIT; Start 11/15/16 at 09:00 Famotidine (Pepcid) 20 mg Q12 PO Last administered on 11/16/16 08:35; Admin Dose 20 MG; Start 11/15/16 at 21:00 PREMA HARDWICK MD Nov 16, 2016 18:13
[2016-11-16 19:21] VITALS: BP 140/71; RESP 18
[2016-11-17] MEDS: PIPER-TAZO 3.375 GM IV (PMX) 100 ML IVPB SCH ×3 (00:20→12:01)
[2016-11-17] MEDS: ACCU-CHEK XX SCH ×2 (02:00→10:05)
[2016-11-17] MEDS: metFORMIN 500 MG TAB PO SCH (07:44)
[2016-11-17] MEDS: INSULIN ASPART [NOVOLOG] 3 ML PEN SC SCH ×2 (07:51→12:08)
[2016-11-17 08:12] VITALS: BP 159/71; RESP 20
[2016-11-17] MEDS: FAMOTIDINE 20 MG TAB PO SCH (08:44)
[2016-11-17] MEDS: LINAGLIPTIN 5 MG TABLET PO SCH (08:44)
[2016-11-17] MEDS: INSULIN GLARGINE [LANtus] 3 ML PEN SC SCH (08:48)
--- NOTE | 2016-11-17 12:04 | PN ---
Date/Time of Note Date/Time of Note DATE: 11/17/16 TIME: 12:03 Assessment/Plan VTE Prophylaxis VTE Prophylaxis Intervention: SCD's Lines/Catheters IV Catheter Type (from Nrsg): Saline Lock Urinary Cath still in place: No Assessment/Plan Assessment/Plan 1. Postop abdominal pain. Patient status post cholecystectomy with possible biliary leak. s/p ERCP with stent. improving. pt had a Hypoglycemia down to 68 s /p Endocrine, changed insulin, lantus to 28 units and Meal time to 8 units with meals 2. Diabetes. 3. Essential hypertension. 4. Leukocytosis likely secondary to #1. improved 5. Morbid obesity. Weight reduction was advised Disposition and plan: pain control, d/c plan today home Subjective 24 Hr Interval Summary Free Text/Dictation Blood sugar controlled, BPs table pain controlled Exam/Review of Systems Vital Signs Vitals Vital Signs Date Time Temp Pulse Resp B/P Pulse Ox O2 Delivery O2 Flow Rate FiO2 11/17/16 08:12 98.5 83 20 159/71 98 11/13/16 17:58 Room Air 11/13/16 17:17 8.0 Intake and Output 11/16/16 11/16/16 11/17/16 15:00 23:00 07:00 Intake Total 1297 ml 400 ml Balance 1297 ml 400 ml Exam General: Still with reported abdominal pain. Only minimal stress Eyes: Equal round reactive to light Neck: Supple nontender, no JVD Cardiac: Regular rate Pulmonary: No adventitious lungs GI: Tender upon palpation right upper abdominal quadrant Extremities: No edema bilateral Skin: CDI Neurologic: AL O 4 Results Result Diagram: 11/15/16 0530 11/16/16 0536 Results 24 hrs Laboratory Tests Test 11/16/16 14:11 11/16/16 17:34 11/16/16 20:40 11/17/16 07:44 Bedside Glucose 173 133 221 H 121 Test 11/17/16 08:44 11/17/16 09:54 Bedside Glucose 138 192 Medications Medications Current Medications Ondansetron HCl (Zofran Inj) 4 mg Q6H PRN IV NAUSEA AND/OR VOMITING; Start at 08:30 Acetaminophen (Tylenol Supp) 650 mg Q6H PRN [place] PAIN LEVEL 1-3 OR FEVER; Start 11/12/16 at 08:30 Morphine Sulfate (morphine) 3 mg Q4H PRN IV SEVERE PAIN LEVEL 7-10 Last administered on 11/13/16 12:40; Admin Dose 3 MG; Start 11/12/16 at 08:30 Miscellaneous Information 1 ea NOTE XX ; Start 11/12/16 at 09:00 Glucose (Glutose) 15 gm Q15M PRN PO DECREASED GLUCOSE; Start 11/12/16 at 09:00 Glucose (Glutose) 22.5 gm Q15M PRN PO DECREASED GLUCOSE; Start 11/12/16 at 09: 00 Dextrose (D50w Syringe) 25 ml Q15M PRN IV DECREASED GLUCOSE; Start 11/12/16 at 09:00 Dextrose (D50w Syringe) 50 ml Q15M PRN IV DECREASED GLUCOSE; Start 11/12/16 at 09:00 Glucagon (Glucagen) 1 mg Q15M PRN IM DECREASED GLUCOSE; Start 11/12/16 at 09:00 Glucose 15 gm 15 gm Q15M PRN BUCCAL DECREASED GLUCOSE; Start 11/12/16 at 09:00 Piperacillin Sod/ Tazobactam Sod (Zosyn 3.375gm/ 100 ml (Pmx)) 100 ml @ 200 mls /hr Q6 IVPB Last administered on 11/17/16 05:43; Admin Dose 200 MLS/HR; Start 11/12/16 at 18:00 Diagnostic Test (Pha) (Accu-Chek) 1 ea 02 XX Last administered on 11/16/16 02: 27; Admin Dose 1 EA; Start 11/13/16 at 02:00 Linagliptin (Tradjenta) 5 mg DAILY PO Last administered on 11/17/16 08:44; Admin Dose 5 MG; Start 11/14/16 at 11:30 Insulin Glargine (Lantus) 28 unit DAILY@09 SC Last administered on 11/17/16 08: 48; Admin Dose 28 UNIT; Start 11/15/16 at 09:00 Famotidine (Pepcid) 20 mg Q12 PO Last administered on 11/17/16 08:44; Admin Dose 20 MG; Start 11/15/16 at 21:00 SHAD WISEMAN MD Nov 17, 2016 12:04
--- NOTE | 2016-11-17 12:06 | PDOCDIS ---
Discharge Instructions CONDITION Patient Condition: Good HOME CARE INSTRUCTIONS: Special Diet: 1800 kathrine diet ACTIVITY: Activity Restrictions: Slowly Increase Activity Rest between Activity Avoid heavy lifting Avoid Heavy Housework FOLLOW UP/APPOINTMENTS Appointments follow up with his own PMD through HMO insurance ni 1- 2week, Follow up with GI as outpatient for Stent removal from CBD in 1-2 months SHAD WISEMAN MD Nov 17, 2016 12:06
[2016-11-17] MEDS ORDERED: LEVO500T10 PO (12:08)
[2016-11-17] MEDS ORDERED: LANT3I SC (12:08)
[2016-11-17] MEDS ORDERED: FAMO20TA18 PO (12:08)
--- NOTE | 2016-11-17 12:42 | CONS ---
Date/Time of Note Date/Time of Note DATE: 11/17/16 TIME: 12:41 Assessment/Plan Assessment/Plan Problems: (1) Diabetes mellitus type 2 in obese Status: Chronic Comment: He is well controlled on his current regimen. There will be some drift once he is an outpatient dietary situation. I will be happy to see him in the office to balance this out. (2) Bile leak, postoperative Status: Acute Comment: As per the expertise of Dr. Howard. Consultation Date/Type/Reason Admit Date/Time Nov 12, 2016 at 03:46 Initial Consult Date 11/12/16 Type of Consultation: Endocrinology Referring Provider: JOSELIN HOROWITZ MD 24 HR Interval Summary Free Text/Dictation Patient is significantly improved in the sugars of balanced out nicely. Exam/Review of Systems Vital Signs Vitals Vital Signs Date Time Temp Pulse Resp B/P Pulse Ox O2 Delivery O2 Flow Rate FiO2 11/17/16 08:12 98.5 83 20 159/71 98 11/13/16 17:58 Room Air 11/13/16 17:17 8.0 Intake and Output 11/16/16 11/16/16 11/17/16 15:00 23:00 07:00 Intake Total 1297 ml 400 ml Balance 1297 ml 400 ml Results No changes Result Diagram: 11/15/16 0530 11/16/16 0536 Results 24 hrs Laboratory Tests Test 11/16/16 14:11 11/16/16 17:34 11/16/16 20:40 11/17/16 07:44 Bedside Glucose 173 133 221 H 121 Test 11/17/16 08:44 11/17/16 09:54 11/17/16 12:02 Bedside Glucose 138 192 150 Medications Medications Current Medications Ondansetron HCl (Zofran Inj) 4 mg Q6H PRN IV NAUSEA AND/OR VOMITING; Start at 08:30 Acetaminophen (Tylenol Supp) 650 mg Q6H PRN [place] PAIN LEVEL 1-3 OR FEVER; Start 11/12/16 at 08:30 Morphine Sulfate (morphine) 3 mg Q4H PRN IV SEVERE PAIN LEVEL 7-10 Last administered on 11/13/16t 12:40; Admin Dose 3 MG; Start 11/12/16 at 08:30 Miscellaneous Information 1 ea NOTE XX ; Start 11/12/16 at 09:00 Glucose (Glutose) 15 gm Q15M PRN PO DECREASED GLUCOSE; Start 11/12/16 at 09:00 Glucose (Glutose) 22.5 gm Q15M PRN PO DECREASED GLUCOSE; Start 11/12/16 at 09: 00 Dextrose (D50w Syringe) 25 ml Q15M PRN IV DECREASED GLUCOSE; Start 11/12/16 at 09:00 Dextrose (D50w Syringe) 50 ml Q15M PRN IV DECREASED GLUCOSE; Start 11/12/16 at 09:00 Glucagon (Glucagen) 1 mg Q15M PRN IM DECREASED GLUCOSE; Start 11/12/16 at 09:00 Glucose 15 gm 15 gm Q15M PRN BUCCAL DECREASED GLUCOSE; Start 11/12/16 at 09:00 Piperacillin Sod/ Tazobactam Sod (Zosyn 3.375gm/ 100 ml (Pmx)) 100 ml @ 200 mls /hr Q6 IVPB Last administered on 11/17/16 12:01; Admin Dose 200 MLS/HR; Start 11/12/16 at 18:00 Diagnostic Test (Pha) (Accu-Chek) 1 ea 02 XX Last administered on 11/16/16 02: 27; Admin Dose 1 EA; Start 11/13/16 at 02:00 Linagliptin (Tradjenta) 5 mg DAILY PO Last administered on 11/17/16 08:44; Admin Dose 5 MG; Start 11/14/16 at 11:30 Insulin Glargine (Lantus) 28 unit DAILY@09 SC Last administered on 11/17/16 08: 48; Admin Dose 28 UNIT; Start 11/15/16 at 09:00 Famotidine (Pepcid) 20 mg Q12 PO Last administered on 11/17/16 08:44; Admin Dose 20 MG; Start 11/15/16 at 21:00 PREMA HARDWICK MD Nov 17, 2016 12:42
--- NOTE | 2016-11-17 22:14 | DS ---
DATE OF ADMISSION: 11/12/2016 DATE OF DISCHARGE: 11/17/2016 FINAL DISCHARGE DIAGNOSES: 1. Postoperative abdominal pain, status post endoscopic retrograde cholangiopancreatography with st ent placement for biliary leak. 2. Acute cholangitis secondary to biliary leak. 3. Diabetes mellitus. 4. Essential hypertension. 5. Leukocytosis secondary to acute cholangitis. 6. Morbid obesity. CONSULTATIONS DONE DURING THIS HOSPITALIZATION: 1. Endocrine consultation, Dr. Twin Hawthorne 2. General surgery consultation, Dr. Do García 3. [facility]obiliary [facility] COURSE: This is a 56-year-old male who has a past medical history of recent cholecystectom y done, other past medical history includes hypertension, diabetes mellitus, dyslipidemia, who prese nted to the emergency department with a complaint of abdominal pain. The patient had a laparoscopic cholecystectomy done on 11/05/[address] García. The patient experienced right upper quadrant abdomi nal pain located in the right upper quadrant associated with some movement and elevation of the righ t hand, and it was also associated with nausea. He got admitted for abdominal pain. The patient ortega d a workup done which revealed that he has a postoperative biliary leak for which he had an ERCP wit h stent placement done. His white count was 16 on admission. He was given IV fluids and IV antibio tics. During the hospitalization, it was noted that his blood sugar was not very well controlled, s o endocrine consultation with Dr. Twin Hawthorne was done. He remained hemodynamically stable, blood sugar was controlled, and he gets discharged home with prescription of p.o. Levaquin x5 days. DISPOSITION: To home. DISCHARGE CONDITION: Stable, improved compared to admission. DISCHARGE ACTIVITIES: As tolerated. Slowly resume to the normal baseline activity. DISCHARGE DIET: ADA 1800 kilocalorie diabetic, consistent carbohydrate diet. DISCHARGE MEDICATIONS: He is given prescriptions of Levaquin 500 mg p.o. daily, Pepcid 20 mg p.o. b .i.d. upon discharge. DISCHARGE FOLLOWUP INSTRUCTIONS: 1. The patient is to follow up with his own primary care doctor through his O insurance 1 to 2 we eks after discharge. 2. The patient is to follow up with General Surgery, Dr. Do García as outpatient in [address] discharge. He has been explained about the discharge plan, followup instructions. He understood and verbalized understanding. Dictated By: SHAD WISEMAN MD, KP/JACOB Conf#: [id number] DID#: [id number]
--- NOTE | 2016-11-18 13:10 | PN ---
Date/Time of Note Date/Time of Note DATE: 11/17/16 TIME: 13:09 Assessment/Plan Lines/Catheters IV Catheter Type (from Nrsg): Saline Lock [place] in Place (from Nrsg): No Assessment/Plan Assessment/Plan [facility] Progress Note (late entry) Date of Service: 11/17/16 Today's Impression & Plan: Overall stable and appears significantly improved. D/c plans delayed due to hypoglycemia. Stable today. Ok with d/c home today. With above assessment, I've recommended the following for today: 1. D/c home 2. Keep in touch with my office and Dr. García's and Dr. Philip's 3. Tentative plan to d/c CBD drain in 2-3 months 4. Consideration for reoperation pending clinical course 5. Dressing change of infraumbilical wound Thank you again for your great care of this very pleasant patient and wonderful family. If there are any questions, please feel free to call me at [phone]. TOTAL VISIT TIME: 20 minutes of which more than half was spent at bedside in the OR as well as coordination of care between multiple physicians and providers. Disclaimer: Inadvertent spelling or grammatical errors are likely due to EHR/ dictation software use and do not reflect on the overall quality of patient care. UPDATED CLINICAL SUMMARY: The patient is a very pleasant 56-year-old gentleman with multiple comorbid issues, including a BMI of 42.2, as well as diabetes mellitus and hypertension, who underwent a laparoscopic cholecystectomy for symptomatic cholelithiasis on 11/05/2016. He was readmitted to the hospital on 11/12/2016 at [facility] with abdominal pain with associated nausea. S/p ERCP 11/13/16 with stent placement in CBD. [place] d/c'd 11/14/16 and infraumbilical wound skin came apart. COMORBIDITIES: 1. BMI of 42.2. 2. Hypertension. 3. Diabetes mellitus type 2. 4. History of known cholelithiasis since July of 2006, or perhaps earlier. 5. History of incarcerated ventral hernia repair, status post repair 08/18/2006 , followed by reoperation on 10/03/[address] Akhtar. 6. Status post phimosis repair 03/21/2009. 7. History of right leg cellulitis, requiring inpatient and outpatient treatment with PICC line placement, and recurrence of leg cellulitis of 2014. Issues with diabetic foot ulcers for a number of years. 8. History of flat colon polyp removed from cecum 07/06/2016, showing evidence for adenocarcinoma, moderately differentiated, and a small focus of residual tubular adenoma present. 9. History of tubular adenoma with resection from sigmoid colon, as well as the rectum. 10. Status post repeat colonoscopy on 09/13/2016, with no further visualization of any abnormalities. 11. S/p laparoscopic cholecystectomy for symptomatic cholelithiasis on [address] García 12. S/p ERCP with CBD stenting by Dr. Philip 11/13/16 (bile leak found at staple line, but appeared to be contained within GB fossa) Subjective: No major events or complaints; no major abd pain and under control with medications; no n/v/d; no sob or cp; + flatus; + BM; + activity; infraumbilical wound dressing intact Objective: Vitals: See below Exam: GENERAL: On exam, the patient was sitting in his bed and appeared to be comfortable and in no acute distress. ABDOMEN: Soft, nontender and nondistended. Incisions are clean, dry and intact without any evidence of erythema, edema, discharge, or hernia. Infraumbilical wound dressing intact. There are no peritoneal signs or guarding. SKIN: Skin appears to be pink and feels warm to touch. NEUROLOGIC: Patient is awake, alert, and follows commands appropriately. Exam/Review of Systems Vital Signs Vitals Vital Signs Date Time Temp Pulse Resp B/P Pulse Ox O2 Delivery O2 Flow Rate FiO2 11/17/16 08:12 98.5 83 20 159/71 98 Intake and Output 11/17/16 11/17/16 11/18/16 15:00 23:00 07:00 Intake Total 820 ml Balance 820 ml Results Result Diagram: 11/15/16 0530 11/16/16 0536 LUCY KING M.D. Nov 18, 2016 13:10
== END 2016-11-17 13:50 | disposition home or self-care (01) | DRG 394 ==
LOC: E/R 19:10 → MS2 11-12 03:46
PROVIDERS: ADMIT Internal Medicine; ATTEND Internal Medicine
PROC: 0F798DZ Dilation of Common Bile Duct with Intraluminal Device, Via Natural or Artificial Opening Endoscopic (ICD-10-PCS; principal; 2016-11-13 16:00)
DX: K91.89 Other postprocedural complications and disorders of digestive system (principal); Z68.41 Body mass index [BMI] 40.0-44.9, adult; E11.65 Type 2 diabetes mellitus with hyperglycemia; I10 Essential (primary) hypertension; G89.18 Other acute postprocedural pain; D72.829 Elevated white blood cell count, unspecified; E66.01 Morbid (severe) obesity due to excess calories; K59.00 Constipation, unspecified; D64.9 Anemia, unspecified; F10.21 Alcohol dependence, in remission; Z85.038 Personal history of other malignant neoplasm of large intestine; Z87.891 Personal history of nicotine dependence
CPT/HCPCS: 36415; 71010; 74177; 74330; 78226; 80048; 80053; 81003; 82962; 83036; 83605; 83690; 83735; 83880; 84100; 85025; 85610; 85651; 85730; 86803; 87040; 87086; 87340; 96365; 96366; 96372; 96375; 96376; A9537; C2617; J0330; J0690; J1815; J2250; J2270; J2405; J2543; J3480; J7030; J7120; Q9967